=== PATIENT | female | born 1930 | race Caucasian/White ===

== ENCOUNTER → 2016-04-02 | Outpatient (CLI) | payer OTHER ==
[~2016-04-02] MED LIST: ADVIN25/60 INH; ASPI-232 PO; ASPI325T39 PO; ASPI81TA28 PO; ATOR-14 PO; DILT-113 PO; DILT180C96 PO; LEVO75TA5 PO; LPT/20 PO; NAPR1TAB9 PO; POLY335019 PO; SPRIN/30 INH; TAMO20TA5 PO; TIOTCAP INH; TRAM-453 PO; VNTHFA/IN INH
--- NOTE | 2016-04-02 17:09 | MAMMOGRAPHY REPORT ---
BILATERAL DIGITAL SCREENING MAMMOGRAM TOMOSYNTHESIS WITH CAD: 04/02/2016 CLINICAL HISTORY: Asymptomatic. Personal history of breast cancer. TECHNIQUE: Breast tomosynthesis in addition to standard 2D mammography was performed. Current study was also evaluated with a Computer Aided Detection (CAD) system. COMPARISON: Comparison is made to exams dated: 03/29/2015 mammogram, 03/27/2014 mammogram, 03/24/2013 mammogram, 08/19/2011 mammogram, 03/22/2012 mammogram, and 03/18/2010 mammogram - [facility]. BREAST COMPOSITION: There are scattered areas of fibroglandular density in both breasts. FINDINGS: No suspicious masses, calcifications, or areas of architectural distortion are noted in e ither breast. There has been no significant interval change compared to prior exams. There are stab le postsurgical changes in the left breast upper outer quadrant from prior lumpectomy. Bilateral be nign-appearing calcifications are not significantly changed. Oval circumscribed benign-appearing 6 mm mass in the left central posterior breast is stable dating back to at least the March 2013 exam . Mild diffuse left breast skin thickening is stable and likely related to prior radiation therapy. IMPRESSION: ACR BI-RADS CATEGORY 2: BENIGN There is no mammographic evidence of malignancy. A 1 year screening mammogram is recommended. The p atient will receive written notification of the results. Approximately 10% of breast cancers are not detected with mammography. A negative mammographic repor t should not delay biopsy if a clinically suggestive mass is present. Merry Bear M.D. ah/:04/02/2016 15:41:05 Second Grade Teacher: Mariana CAMPBELL)(Reuben), [facility] letter sent: Normal 1/2 BI-RADS Code: ACR BI-RADS Category 2: Benign
== END | disposition home or self-care (01) ==
LOC: C.MAMM 10:48
PROVIDERS: ATTEND Family Medicine
DX: Z12.31 Encounter for screening mammogram for malignant neoplasm of breast (principal); Z85.3 Personal history of malignant neoplasm of breast; Z08 Encounter for follow-up examination after completed treatment for malignant neoplasm

== ENCOUNTER → 2016-04-10 | Outpatient (CLI) | payer OTHER ==
[2016-04-10 09:51] LABS: ALT/SGPT 23 U/L (12-78); BLOOD UREA NITROGEN 16 mg/dl (7-18); BUN/CREATININE RATIO 18.6 (10-20); CALCIUM 8.3 mg/dl (8.5-10.1); CARBON DIOXIDE 26 mmol/L (21-32); CHLORIDE 106 mmol/L (98-107); CREATININE 0.86 mg/dl (0.60-1.20); GLUCOSE 97 mg/dl (70-99); POTASSIUM 4.1 mmol/L (3.5-5.1); SODIUM 141 mmol/L (136-145)
[2016-04-10 10:02] LABS: CHOLESTEROL 184 mg/dl (0-200); HDL CHOLESTEROL 92 mg/dl; LDL CHOLESTEROL CALCULATED 75 mg/dl; TRIGLYCERIDES 85 mg/dl (0-150); VERY LOW DENSITY LIPOPROT CALC 17 mg/dl
== END | disposition home or self-care (01) ==
LOC: C.LAB1850 07:26
PROVIDERS: ATTEND Family Medicine
DX: I10 Essential (primary) hypertension (principal); E78.00 Pure hypercholesterolemia, unspecified; E03.9 Hypothyroidism, unspecified; H61.20 Impacted cerumen, unspecified ear

== ENCOUNTER 2016-05-14 18:22 | Emergency (ER) | payer OTHER ==
[~2016-05-14] VITALS: Ht 160 cm; Wt 74.0 kg
[~2016-05-14 18:22] MED LIST changes: -ASPI325T39 PO; -ASPI81TA28 PO; -DILT180C96 PO; -LPT/20 PO; -NAPR1TAB9 PO; -POLY335019 PO; -SPRIN/30 INH; -TRAM-453 PO
[2016-05-14 18:25] VITALS: TEMP 36.6; Ht 160 cm; Wt 74.0 kg
[2016-05-14 19:05] VITALS: BP 147/90; PULSE 82; O2SAT 95
--- NOTE | 2016-05-14 19:06 | EMERGENCY ROOM VISIT NOTE ---
History Report prepared by Travis: Natalia Amor Under the Supervision of: Dr. Morales Orellana M.D. First contact with patient: 18:27 Chief Complaint: NOSE BLEED (MINOR) Stated Complaint: NOSE BLEED History of Present Illness The patient is a 85 year old female who presents to the Emergency Room with complaints of a resolved nose bleed that occurred BLANKET CUTTER HAND. The patient is unaware which side this nose bleed occurred on as it was too much blood. She held her head back during this episode of bleeding. She adds that she was "spitting up blood clots." The patient states that she experienced a similar nose bleed 5 days ago. She takes baby aspirin regularly. She denies trauma and persistent blowing of her nose recently. She denies any additional bleeding including rectal bleeding. She denies any easy bruising or bleeding. Source of History: patient Onset: BLANKET CUTTER HAND Position: nose Timing: resolved Modifying Factors (Worsening): other (None) Modifying Factors (Relieving): other (None) Note: The patient denies additional bleeding including rectal bleeding Review of Systems See HPI for pertinent positives & negatives. A total of 6 systems reviewed and were otherwise negative. Past Medical & Surgical Medical Problems: (1) Benign hypertension (2) Breast cancer (3) COPD (chronic obstructive pulmonary disease) (4) Coronary artery disease (5) Emphysema (6) Hypertension (7) Ovarian cancer Surgical Problems: (1) H/O hernia repair (2) History of hip replacement, total Family History FHx: cancer Social History Smoking Status: Former Smoker Alcohol Use: occasionally Drug Use: none Marital Status: Housing Status: lives alone Occupation Status: retired Current/Historical Medications Scheduled Aspirin (Aspir-81), 81 MG PO HS Atorvastatin (Lipitor), 10 MG PO HS Diltiazem Hcl Ext Rel (Tiazac), 180 MG PO DAILY Fluticasone Prop/Salmeterol (Advair Diskus 250/50 60 Dose), 1 PUFF INH BID Levothyroxine Sodium (Levothyroxine Sodium), 75 MCG PO DAILY Tamoxifen Citrate (Nolvadex), 20 MG PO DAILY Tiotropium [place] (Spiriva Handihaler), 1 CAP INH DAILY Scheduled PRN Albuterol Hfa (Ventolin Hfa), 2 PUFFS INH Q 4-6 HOURS PRN Polyethylene Glycol 3350 (Miralax), 17 GM PO DAILY PRN for Constipation Allergies Coded Allergies: Atorvastatin (Verified Adverse Reaction, Unknown, MYALGIA, 03/26/15) PT HAS LISTED WITH ALLSCRIPTS THAT SHE TAKES THIS MED, DR FAROOQ INDICATES SHE HAS RECENTLY HAD IT FILLED, PT STATES MD CHANGED THIS D/T MYALGIA HOWEVER PT IS UNSURE IF IT THE DOSE OR THE MED, NO OTHER HYPERLIPIDEMIA MEDS HAVE BEEN FILLED AND PT DID NOT RECEIVE A SAMPLE FROM MD. PT IS NOT SURE BUT SHE KNOWS SHE TAKES SOMETHING. Physical Exam Vital Signs Date Time Temp Pulse Resp B/P Pulse Ox O2 Delivery O2 Flow Rate FiO2 05/14/16 18:25 36.6 89 18 146/82 96 Room Air Physical Exam Constitutional: Vital signs reviewed. Eyes: Pupils are equal round reactive to light. Conjunctiva are noninjected. ENT: Well formed clot in right septum with no active bleeding. No blood in left nostril. Pharynx is clear without erythema or exudate. Mucous membranes are moist. Neck supple without meningeal signs. Respiratory: Clear to auscultation bilaterally. Breath sounds are equal bilaterally. Cardiovascular: Regular rate and rhythm. No rubs or gallops. GI: Soft, nondistended and nontender. Bowel sounds are present. Musculoskeletal: No peripheral edema. Integumentary: No cyanosis, petechiae, or purpura. Neurological: The patient is awake and alert. No focal deficits. Psychiatric: Normal affect. Medical Decision & Procedures ED Course 1829: The patient was evaluated in room A12B. A complete history and physical exam was performed. 1841: Upon reevaluation, the patient appeared to have improvement of her symptoms. I discussed segundoight's findings with the patient. She verbalized agreement of the treatment plan. She was discharged home. Medical Decision This is an 85-year-old female presents with a nosebleed. I did perform a limited focused review of portions of the patient's old chart on the electronic medical record. The patient has had no recent pertinent visits to this hospital. I did evaluate the patient as noted above. The patient has had 2 nosebleeds over the past week. Her nosebleed today has currently resolved. I did note that she has a clot in the right anterior septum without any active bleeding. The patient told me that she was holding her head back pinching the bridge of her nose and had an ice pack to her neck. I did educate her about controlling nosebleeds properly. She was instructed on how to hold pressure over her septum rather than the bony nasal bridge. She was also given a nasal clamp to assist her. I did talk about options such as cautery and packing. Given she has no active bleeding I did not feel packing was indicated. Cautery was also questionable given no active bleeding at this time. I was also concerned about the scarring that may develop from the cautery. I did offer cautery but she declined. She stated that she had had cautery in the past and immediately bled when she got home. The patient was therefore discharged and advised follow with her doctor. She will continue using a humidifier in her room. Impression Primary Impression: Epistaxis Scribe Attestation The scribe's documentation has been prepared under my direct and personally reviewed by me in its entirety. I confirm that the note above accurately reflects all work, treatment, procedures, and medical decision making performed by me. Departure Information Dispostion Home / Self-Care Referrals Francheska Zapata MD (PCP) Forms HOME CARE DOCUMENTATION FORM, IMPORTANT VISIT INFORMATION, WORK / SCHOOL INSTRUCTIONS Patient Instructions My [facility] Additional Instructions You have been examined and treated today on an emergency basis only. This is not a substitute for, or an effort to provide, complete comprehensive medical care. It is impossible to recognize and treat all injuries or illnesses in a single emergency department visit. It is therefore important that you follow up closely with your physician. Call as soon as possible for an appointment. Return for worsening symptoms or if you develop or any other concerning symptoms.
[2016-05-14] MEDS ORDERED: LPT/20 PO (19:15)
[2016-05-14] MEDS ORDERED: DILT180C96 PO (19:15)
[2016-05-14] MEDS ORDERED: ASPI325T39 PO (19:15)
[2016-05-14] MEDS ORDERED: SPRIN/30 INH (19:15)
[2016-05-14] MEDS ORDERED: POLY335019 PO (20:47)
[2016-07-03] MEDS ORDERED: ASPI81TA28 PO (15:45)
[2016-07-03] MEDS ORDERED: NAPR1TAB9 PO (15:45)
[2016-07-03] MEDS ORDERED: TRAM-453 PO (19:06)
== END 2016-05-14 19:06 | disposition home or self-care (01) ==
LOC: C.EDB 18:24 → C.EDA 19:06
DX: R04.0 Epistaxis (principal); I10 Essential (primary) hypertension; I25.10 Atherosclerotic heart disease of native coronary artery without angina pectoris; J44.9 Chronic obstructive pulmonary disease, unspecified; J43.9 Emphysema, unspecified; Z85.3 Personal history of malignant neoplasm of breast; Z85.43 Personal history of malignant neoplasm of ovary; Z87.891 Personal history of nicotine dependence; Z79.82 Long term (current) use of aspirin; Z79.899 Other long term (current) drug therapy; Z88.8 Allergy status to other drugs, medicaments and biological substances; Z80.9 Family history of malignant neoplasm, unspecified

== ENCOUNTER → 2016-05-22 | Outpatient (CLI) | payer OTHER ==
[~2016-05-22] MED LIST changes: -ASPI-232 PO; +ASPI325T39 PO; +ASPI81TA28 PO; -ATOR-14 PO; -DILT-113 PO; +DILT180C96 PO; +LPT/20 PO; +NAPR1TAB9 PO; +POLY335019 PO; +SPRIN/30 INH; -TAMO20TA5 PO; -TIOTCAP INH; +TRAM-453 PO
[2016-05-22 12:10] LABS: BASO % 0.4 %; BASO ABS # 0.03 K/uL (0-0.2); COMPLETE YES; EOS % 1.5 %; HEMATOCRIT 38.5 % (37-47); IG% 0.1 %; LYMPH % 16.7 %; LYMPH ABS # 1.15 K/uL (1.2-3.4); MEAN CELL VOLUME 93.7 fL (80-100); MEAN CORPUSCULAR HEMOGLOBIN 29.7 pg (25-34); MEAN CORPUSCULAR HGB CONC 31.7 g/dl (32-36); MEAN PLATELET VOLUME 10.5 fL (7.4-10.4); MONO % 8.7 %; NEUT % 72.6 %; PLATELET COUNT 207 K/uL (130-400); RED BLOOD COUNT 4.11 M/uL (4.2-5.4); WHITE BLOOD COUNT 6.89 K/uL (4.8-10.8)
== END | disposition home or self-care (01) ==
LOC: C.LAB1850 10:35
PROVIDERS: ATTEND Family Medicine
DX: R04.0 Epistaxis (principal)

== ENCOUNTER → 2016-05-26 | Outpatient (CLI) | payer OTHER | END | disposition home or self-care (01) | LOC: C.PATHSPEC 11:54 | PROVIDERS: ATTEND Ophthalmology | DX: D23.12 Other benign neoplasm of skin of left eyelid, including canthus (principal) ==

== ENCOUNTER → 2016-06-27 | Outpatient (CLI) | payer OTHER ==
[~2016-06-27] MED LIST changes: +DILT180C58 PO; -DILT180C96 PO
--- NOTE | 2016-06-27 14:53 | DIAGNOSTIC IMAGING REPORT ---
ULTRASOUND LEFT VENOUS DOPP LOWER EXT UNILAT CLINICAL HISTORY: Left leg pain and numbness COMPARISON STUDY: No previous studies for comparison. FINDINGS: Real-time and color flow Doppler imaging were performed. Flow was seen within the femoral, popliteal and calf veins with no intraluminal thrombus demonstrated. The saphenous vein is patent. IMPRESSION: No evidence of left lower extremity DVT. Electronically signed by: David Tellez M.D. 06/27/2016 2:51 PM Dictated Date/Time: 06/27/2016 2:50 PM
== END | disposition home or self-care (01) ==
LOC: C.ULTRBC 14:25
PROVIDERS: ATTEND Nurse Practitioner Family
DX: M79.605 Pain in left leg (principal)

== ENCOUNTER → 2016-06-30 | Outpatient (CLI) | payer OTHER ==
--- NOTE | 2016-06-30 10:51 | DIAGNOSTIC IMAGING REPORT ---
LEFT KNEE 1 OR 2 VIEWS ROUTINE CLINICAL HISTORY: Left knee pain COMPARISON: None. DISCUSSION: No acute fractures are visualized. There are no erosive or destructive changes. The joint space appears well-preserved for age. There are vascular calcifications. IMPRESSION: No fractures identified. No destructive lesions are visualized. Electronically signed by: David Tellez M.D. 06/30/2016 10:49 AM Dictated Date/Time: 06/30/2016 10:48 AM
[2016-06-30 12:27] LABS: ALB/GLOB RATIO 1.2 (0.9-2); ALKALINE PHOSPHATASE 57 U/L (45-117); ALT/SGPT 31 U/L (12-78); AST/SGOT 18 U/L (15-37); BASO % 1.1 %; BASO ABS # 0.06 K/uL (0-0.2); BLOOD UREA NITROGEN 19 mg/dl (7-18); BUN/CREATININE RATIO 20.2 (10-20); C-REACTIVE PROTEIN < 0.29 mg/dl (0-0.29); CALCIUM 8.8 mg/dl (8.5-10.1); CARBON DIOXIDE 25 mmol/L (21-32); CHLORIDE 108 mmol/L (98-107); COMPLETE YES; CREATININE 0.96 mg/dl (0.60-1.20); EOS % 1.8 %; GLUCOSE 91 mg/dl (70-99); HEMATOCRIT 39.9 % (37-47); IG% 0.4 %; LYMPH % 21.5 %; MEAN CELL VOLUME 95.2 fL (80-100); MEAN CORPUSCULAR HEMOGLOBIN 30.3 pg (25-34); MEAN CORPUSCULAR HGB CONC 31.8 g/dl (32-36); MEAN PLATELET VOLUME 10.4 fL (7.4-10.4); MONO % 6.4 %; NEUT % 68.8 %; PLATELET COUNT 204 K/uL (130-400); POTASSIUM 4.1 mmol/L (3.5-5.1); RED BLOOD COUNT 4.19 M/uL (4.2-5.4); SODIUM 141 mmol/L (136-145); URIC ACID 4.4 mg/dl (2.6-7.2); WHITE BLOOD COUNT 5.59 K/uL (4.8-10.8)
[2016-06-30 13:09] LABS: LYME DISEASE AB IGG NEG (NEG); LYME DISEASE AB IGM NEG (NEG)
== END | disposition home or self-care (01) ==
LOC: C.RAD1850 10:21
PROVIDERS: ATTEND Nurse Practitioner Family
DX: M79.609 Pain in unspecified limb (principal)

== ENCOUNTER → 2016-10-07 | Outpatient (CLI) | payer OTHER ==
[~2016-10-07] MED LIST changes: -ASPI325T39 PO; -DILT180C58 PO; +DILT180C96 PO; -TRAM-453 PO
[2016-10-07 09:52] LABS: ALT/SGPT 34 U/L (12-78); BLOOD UREA NITROGEN 16 mg/dl (7-18); CALCIUM 8.6 mg/dl (8.5-10.1); CARBON DIOXIDE 26 mmol/L (21-32); CHLORIDE 108 mmol/L (98-107); CREATININE 0.84 mg/dl (0.60-1.20); GLUCOSE 99 mg/dl (70-99); HDL CHOLESTEROL 87 mg/dl; POTASSIUM 4.1 mmol/L (3.5-5.1); SODIUM 140 mmol/L (136-145)
[2016-10-07 10:06] LABS: CHOLESTEROL 187 mg/dl (0-200); CHOLESTEROL/HDL RATIO 2.1; LDL CHOLESTEROL CALCULATED 88 mg/dl; TRIGLYCERIDES 62 mg/dl (0-150); VERY LOW DENSITY LIPOPROT CALC 12 mg/dl
== END | disposition home or self-care (01) ==
LOC: C.LAB1850 08:14
PROVIDERS: ATTEND Family Medicine
DX: I10 Essential (primary) hypertension (principal); E78.00 Pure hypercholesterolemia, unspecified; E03.9 Hypothyroidism, unspecified

== ENCOUNTER → 2016-12-30 | Outpatient (CLI) | payer OTHER ==
[~2016-12-30] MED LIST changes: +DILT180C58 PO; -DILT180C96 PO
[2016-12-30 13:28] VITALS: BP 141/78; PULSE 72; TEMP 36.5; O2SAT 92
--- NOTE | 2016-12-30 14:35 | Radiation Oncology Follow-Up ---
Radiation Oncology Follow-Up Date of Visit Dec 30, 2016. Reason For Visit Annual follow-up Radiation Completion Date 06/06/2011 Diagnosis (1) Breast cancer Status: Resolved Onset Date: 04/04/2011 Location: left breast Histology Subtype: ductal Stage: l Permanent Comment: Status post abnormal left breast mammogram Status post ultrasound-guided biopsy 04/04/2011 revealing invasive ductal carcinoma Status post needle localization biopsy excisional lumpectomy and sentinel lymph node biopsy 08/20/2011 Stage [id number] Estrogen receptor positive, progesterone receptor positive, HER-2/boyd negative Status post completion of radiation therapy utilizing accelerated partial breast treatment completed 06/06/2011 received 3400 cGy Last Edited By: Monae Angulo on Jan 02, 2015 16:33 Interim History She's been doing well over this past year. She denies any changes to her breast. She is noted no masses or tenderness and no change in the axilla. She' s had no swelling of her arm. She is up-to-date on mammography. She had a recheck mammogram 04/02/2016. There was no mammographic evidence of malignancy. One year follow-up was recommended BI-RADS Category 2. She continues follow-up with Dr. Huber and is on tamoxifen. She denies side effects. Allergies Coded Allergies: Atorvastatin (Verified Adverse Reaction, Unknown, MYALGIA, 03/26/15) PT HAS LISTED WITH ALLSCRIPTS THAT SHE TAKES THIS MED, DR FAROOQ INDICATES SHE HAS RECENTLY HAD IT FILLED, PT STATES MD CHANGED THIS D/T MYALGIA HOWEVER PT IS UNSURE IF IT THE DOSE OR THE MED, NO OTHER HYPERLIPIDEMIA MEDS HAVE BEEN FILLED AND PT DID NOT RECEIVE A SAMPLE FROM MD. PT IS NOT SURE BUT SHE KNOWS SHE TAKES SOMETHING. Home Medications Scheduled Aspirin (Aspirin Ec), 81 MG PO DAILY Atorvastatin (Atorvastatin Calcium), 20 MG PO DAILY Diltiazem Hcl Coated Beads (Diltiazem Cd), 180 MG PO DAILY Fluticasone Prop/Salmeterol (Advair Diskus 250/50 60 Dose), 1 PUFF INH BID Levothyroxine Sodium (Levothyroxine Sodium), 75 MCG PO DAILY Tiotropium [place] (Spiriva Handihaler), 1 PUFF INH DAILY Scheduled PRN Albuterol Hfa (Ventolin Hfa), 2 PUFFS INH Q 4-6 HOURS PRN Naproxen (Aleve), 220 MG PO Q12 PRN for Pain Polyethylene Glycol 3350 (Miralax), 17 GM PO DAILY PRN for Constipation Review of Systems Gastrointestinal: Symptoms: Constipation GI Comments: constipation a problem all m life Oral: Symptoms: No Problems Respiratory: Symptoms: SOB With Exertion Respiratory Comments: copd Other Respiratory: SOB w/exertion related to her "COPD" Urinary: Symptoms: WNL Comments: 2-3 voids/night which is typical for pt Skin: Symptoms: No Problems Breast: Right Upper Arm Measurement: 26.5 Right Mid Arm Measurement: 23.0 Right Wrist Measurement: 16.0 Left Upper Arm Measurement: 27.5 Left Mid Arm Measurement: 22.5 Left Wrist Measurement: 16.0 Arm Dominence: Right Physical Exam Vital Signs Date Time Temp Pulse Resp B/P (MAP) Pulse Ox O2 Delivery O2 Flow Rate FiO2 12/30/16 13:28 36.5 72 22 141/78 92 Pain: Pain Location: None Patient Pain Scale: 0 - 10 Initial Pain Intensity: 0.0 Fatigue: None General Appearance: no apparent distress Eyes: normal inspection, EOMI ENT: normal ENT inspection, hearing grossly normal Neck: no adenopathy, thyroid normal Respiratory/Chest: lungs clear, no respiratory distress, no accessory muscle use Breast: Breast examination reveals well-healed incisions of the left breast. There is palpable fibrous tissue in the upper outer quadrant. She has very slight telangiectasia over the upper outer quadrant incision. Mild deficit also in this area. There are no masses or tenderness and no axillary adenopathy. Using the [place] score cosmesis she has a good outcome. The right breast showed no masses or tenderness and no axillary adenopathy. Cardiovascular: regular rate, rhythm, no gallop, no murmur Neurologic/Psychiatric: no motor/sensory deficits, alert, normal mood/affect Skin: warm/dry Laboratory Studies Test 10/07/16 08:18 Sodium Level 140 mmol/L (136-145) Potassium Level 4.1 mmol/L (3.5-5.1) Chloride Level 108 mmol/L (98-107) Carbon Dioxide Level 26 mmol/L (21-32) Anion Gap 6.0 mmol/L (3-11) Blood Urea Nitrogen 16 mg/dl (7-18) Creatinine 0.84 mg/dl (0.60-1.20) Estimated GFR () 73.5 Estimated GFR (Non- 63.4 BUN/Creatinine Ratio 19.0 (10-20) Random Glucose 99 mg/dl (70-99) Calcium Level 8.6 mg/dl (8.5-10.1) Alanine Aminotransferase (ALT) 34 U/L (12-78) Triglycerides Level 62 mg/dl (0-150) Cholesterol Level 187 mg/dl (0-200) HDL Cholesterol 87 mg/dl LDL Cholesterol, Calculated 88 mg/dl VLDL Cholesterol, Calculated 12 mg/dl Cholesterol/HDL Ratio 2.1 Thyroid Stimulating Hormone (TSH) 2.040 uIu/ml (0.300-4.500) Additional Studies Patient: ILEANA SANTOYO [facility] Rec: [id number] Address1: [address] [place] [address] [facility]: [id number] Date: 1930 Sex: F Ref Phy: Att Phy: Francheska Zapata MD La Phy: Francheska Zapata MD Inter Phy: Merry Bear MD [facility] Zip: [place] [address] SC: C.MAMM Report #: [id number] Attorney Lawyer: YUDITH Diagnosis: ASYMPTOMATIC HX OF BREAST CANCER Service Date: 04/02/16 MNE: [id number] Ordering Dr: Francheska Zapata MD CC: Francheska Zapata MD CONF: DICTATED BY: Merry Bear MD MAMMOGRAPHY REPORT BILATERAL DIGITAL SCREENING MAMMOGRAM TOMOSYNTHESIS WITH CAD: 04/02/2016 CLINICAL HISTORY: Asymptomatic. Personal history of breast cancer. TECHNIQUE: Breast tomosynthesis in addition to standard 2D mammography was performed. Current study was also evaluated with a Computer Aided Detection (CAD ) system. COMPARISON: Comparison is made to exams dated: 03/29/2015 mammogram, 03/27/2014 mammogram, 03/24/2013 mammogram, 08/19/2011 mammogram, 03/22/2012 mammogram, and 12/2010 mammogram - [facility]. BREAST COMPOSITION: There are scattered areas of fibroglandular density in both breasts. FINDINGS: No suspicious masses, calcifications, or areas of architectural distortion are noted in either breast. There has been no significant interval change compared to prior exams. There are stable postsurgical changes in the left breast upper outer quadrant from prior lumpectomy. Bilateral benign- appearing calcifications are not significantly changed. Oval circumscribed benign-appearing 6 mm mass in the left central posterior breast is stable dating back to at least the March 2013 exam. Mild diffuse left breast skin thickening is stable and likely related to prior radiation therapy. IMPRESSION: ACR BI-RADS CATEGORY 2: BENIGN There is no mammographic evidence of malignancy. A 1 year screening mammogram is recommended. The patient will receive written notification of the results. Approximately 10% of breast cancers are not detected with mammography. A negative mammographic report should not delay biopsy if a clinically suggestive mass is present. Merry Bear M.D. ah/:04/02/2016 15:41:05 Narcotics And/Or Vice Detective: Mariana CAMPBELL)(Reuben), [facility] letter sent: Normal 1/2 BI-RADS Code: ACR BI-RADS Category 2: Benign Dictated by: Merry Bear MD Signed by: Merry Bear MD Assessment & Plan Plan: Continue annual mammography. Continue regular follow-up with Dr. Huber and Dr. Zapata. She has been discharged from Dr. Carter. A follow-up appointment with our office was not given. She may call if she has any questions or concerns. She'll need to continue taking you to have regular breast examinations at Dr. Zapata's office. Total Time In Follow-Up I spent 20 minutes speaking to the patient and performing examination. I spent 15 minutes reviewing information in completing this note. Copy To Jt Huber M.D.; Francheska Zapata MD
== END | disposition home or self-care (01) ==
LOC: C.ONC 13:15
PROVIDERS: ATTEND Physician Assistant Medical
DX: Z08 Encounter for follow-up examination after completed treatment for malignant neoplasm (principal); Z92.3 Personal history of irradiation; Z85.3 Personal history of malignant neoplasm of breast

== ENCOUNTER → 2017-04-06 | Outpatient (CLI) | payer OTHER ==
[~2017-04-06] MED LIST changes: -DILT180C58 PO; +DILT180C96 PO; -LPT/20 PO; +LPT20 PO
--- NOTE | 2017-04-06 15:52 | MAMMOGRAPHY REPORT ---
BILATERAL DIGITAL SCREENING MAMMOGRAM TOMOSYNTHESIS WITH CAD: 04/06/2017 CLINICAL HISTORY: Asymptomatic. Personal history of breast cancer. TECHNIQUE: Breast tomosynthesis in addition to standard 2D mammography was performed. Current study was also evaluated with a Computer Aided Detection (CAD) system. COMPARISON: Comparison is made to exams dated: 04/02/2016 mammogram, 03/29/2015 mammogram, 03/27/2014 m ammogram, 09/22/2013 mammogram, 03/24/2013 mammogram, and 03/22/2012 mammogram - [facility]. BREAST COMPOSITION: There are scattered areas of fibroglandular density in both breasts. FINDINGS: No suspicious masses, calcifications, or areas of architectural distortion are noted in ei ther breast. There has been no significant interval change compared to prior exams. There are stable postsurgical changes in the left breast upper outer quadrant from prior lumpectomy. Bilateral benig n-appearing calcifications are not significantly changed. Oval circumscribed benign-appearing 6 mm m ass in the left central posterior breast is stable dating back to at least the March 2013 exam. Mi ld diffuse left breast skin thickening is stable and likely related to prior radiation therapy. IMPRESSION: ACR BI-RADS CATEGORY 2: BENIGN There is no mammographic evidence of malignancy. A 1 year screening mammogram is recommended. The pa tient will receive written notification of the results. Approximately 10% of breast cancers are not detected with mammography. A negative mammographic report should not delay biopsy if a clinically suggestive mass is present. Merry Bear M.D. /:04/06/2017 12:57:15 Manager Marketing Communications: Jess Fermin, [facility] letter sent: Normal 1/2 BI-RADS Code: ACR BI-RADS Category 2: Benign
== END | disposition home or self-care (01) ==
LOC: C.MAMM 10:13
PROVIDERS: ATTEND Family Medicine
DX: Z12.31 Encounter for screening mammogram for malignant neoplasm of breast (principal)

== ENCOUNTER → 2017-04-14 | Outpatient (CLI) | payer OTHER ==
[2017-04-14 09:46] LABS: ALT/SGPT 29 U/L (12-78); BLOOD UREA NITROGEN 14 mg/dl (7-18); CALCIUM 8.9 mg/dl (8.5-10.1); CARBON DIOXIDE 27 mmol/L (21-32); CREATININE 0.83 mg/dl (0.60-1.20); GLUCOSE 93 mg/dl (70-99); POTASSIUM 4.2 mmol/L (3.5-5.1); SODIUM 137 mmol/L (136-145)
[2017-04-14 09:55] LABS: CHOLESTEROL 200 mg/dl (0-200); LDL CHOLESTEROL CALCULATED 85 mg/dl
== END | disposition home or self-care (01) ==
LOC: C.LAB1850 07:38
PROVIDERS: ATTEND Family Medicine
DX: I25.10 Atherosclerotic heart disease of native coronary artery without angina pectoris (principal); I10 Essential (primary) hypertension; E78.00 Pure hypercholesterolemia, unspecified; E03.9 Hypothyroidism, unspecified

== ENCOUNTER 2020-02-11 08:48 | Inpatient (IN) ==
[2020-02-11] MEDS ORDERED: predniSONE 20 MG TAB PO SCH (11:40)
[2020-02-11] MEDS: SODIUM CHLORIDE 0.9% 1000ML 1,000 ML IV SCH ×2 (15:00→22:35)
[2020-02-11] MEDS ORDERED: POLYETHYLENE (MIRALAX) 17 GM PACK PO PRN (17:36)
[2020-02-11] MEDS ORDERED: ACETAMINOPHEN 325 MG TAB PO PRN (17:37)
[2020-02-11] MEDS ORDERED: Nursing to Pharmacy Communication SCH (18:15)
[2020-02-11 20:00] LABS: Basophils # (auto) 0.01 K/uL (0-0.2); Basophils % (auto) 0.1 %; Hematocrit (blood only) 40.2 % (37-47); Hemoglobin 13.1 g/dL (12.0-16.0); Immature Granulocytes # (auto) 0.06 K/uL (0.00-0.02); Immature Granulocytes % (auto) 0.6 %; Lymphocytes # (auto) 0.42 K/uL (1.2-3.4); Lymphocytes % (auto) 4.4 %; Mean Corpuscular Hemoglobin 29.6 pg (25-34); Mean Corpuscular Hgb Conc 32.6 g/dL (32-36); Mean Corpuscular Volume 90.7 fL (80-100); Mean Platelet Volume 9.8 fL (7.4-10.4); Monocytes # (auto) 0.47 K/uL (0.11-0.59); Monocytes % (auto) 4.9 %; Neutrophils # (auto) 8.58 K/uL (1.4-6.5); Platelet Count 226 K/uL (130-400); RDW Coefficient of Variation 13.9 % (11.5-14.5); RDW Standard Deviation 46.3 fL (36.4-46.3); Red Blood Count 4.43 M/uL (4.2-5.4); White Blood Count 9.54 K/uL (4.8-10.8)
[2020-02-11 20:27] LABS: Alanine Aminotransferase 64 U/L (12-78); Albumin Globulin Ratio 0.7 (0.9-2); Albumin Level 3.1 gm/dl (3.4-5.0); Alkaline Phosphatase 111 U/L (45-117); Aspartate Aminotransferase 64 U/L (15-37); BUN Creatinine Ratio 13.2 (10-20); Bilirubin,Total 0.5 mg/dl (0.2-1); Blood Urea Nitrogen 8 mg/dl (7-18); Calcium 8.1 mg/dl (8.5-10.1); Carbon Dioxide 25 mmol/L (21-32); Chloride 96 mmol/L (98-107); Est GFR (African American) 92.7; Est GFR (Non-African American) 79.9; Globulin 4.4 gm/dl (2.5-4.0); Glucose 133 mg/dl (70-99); Magnesium 2.1 mg/dl (1.8-2.4); NT Pro B Type Natriuretic Pept 614 pg/ml (0-1800); Potassium 3.4 mmol/L (3.5-5.1); Sodium 129 mmol/L (136-145); Total Protein 7.5 gm/dl (6.4-8.2); Troponin I < 0.015 ng/ml (0-0.045)
[2020-02-11] MEDS: ALBUTEROL HFA 8 GM INHALER INH SCH (20:50)
[2020-02-11] MEDS: IPRATROPIUM BROMIDE HFA INHALER INH SCH (20:50)
--- NOTE | 2020-02-11 21:23 | XRay Report ---
XR chest 1V portable CLINICAL HISTORY: Chest pain and difficulty breathing COMPARISON STUDY: No previous studies for comparison. FINDINGS: The heart is mildly enlarged. There is aortic tortuosity/ectasia. No pneumothorax is visual ized. There is mild elevation of interstitium. There are equivocal more focal opacities within the ri ght perihilar region. There is an old left-sided rib fracture. There are no significant pleural effus ions.[There are multiple calcified loose bodies within the left subacromial space. IMPRESSION: 1. Mild elevation of the interstitium. Likely diagnostic considerations include mild interstitial vini ma versus an interstitial infectious/inflammatory process. Clinical and radiographic follow-up is rec ommended ACT 112: Negative or not required by law. Electronically signed by: David Tellez M.D. 02/11/2020 10:27 AM
[2020-02-12] MEDS: LEVOTHYROXINE SODIUM 75 MCG TABLET PO SCH (05:55)
[2020-02-12 06:59] LABS: Hematocrit (blood only) 38.9 % (37-47); Hemoglobin 12.9 g/dL (12.0-16.0); Immature Granulocytes # (auto) 0.03 K/uL (0.00-0.02); Immature Granulocytes % (auto) 0.4 %; Lymphocytes # (auto) 0.57 K/uL (1.2-3.4); Lymphocytes % (auto) 7.1 %; Mean Corpuscular Hemoglobin 30.2 pg (25-34); Mean Corpuscular Hgb Conc 33.2 g/dL (32-36); Mean Corpuscular Volume 91.1 fL (80-100); Mean Platelet Volume 9.1 fL (7.4-10.4); Monocytes % (auto) 7.5 %; Neutrophils # (auto) 6.79 K/uL (1.4-6.5); Platelet Count 226 K/uL (130-400); RDW Coefficient of Variation 14.1 % (11.5-14.5); RDW Standard Deviation 47.4 fL (36.4-46.3); Red Blood Count 4.27 M/uL (4.2-5.4); White Blood Count 7.99 K/uL (4.8-10.8)
[2020-02-12] MEDS: IPRATROPIUM BROMIDE HFA INHALER INH SCH ×4 (07:08→19:38)
[2020-02-12] MEDS: ALBUTEROL HFA 8 GM INHALER INH SCH ×4 (07:09→19:38)
[2020-02-12 07:30] LABS: D Dimer 670 ug/L FEU (0-500)
[2020-02-12 07:40] LABS: Sodium 135 mmol/L (136-145)
[2020-02-12 07:41] LABS: BUN Creatinine Ratio 23.6 (10-20); Blood Urea Nitrogen 10 mg/dl (7-18); Calcium 7.9 mg/dl (8.5-10.1); Carbon Dioxide 25 mmol/L (21-32); Chloride 103 mmol/L (98-107); Est GFR (African American) 106.2; Est GFR (Non-African American) 91.6; Glucose 99 mg/dl (70-99); Magnesium 2.1 mg/dl (1.8-2.4); Potassium 3.2 mmol/L (3.5-5.1)
[2020-02-12] MEDS: ASPIRIN 81 MG ECTAB PO SCH (08:01)
[2020-02-12] MEDS: dilTIAZem HCL 180 MG CAPCR PO SCH (08:02)
[2020-02-12] MEDS: ATORVASTATIN 20 MG TAB PO SCH (08:02)
[2020-02-12] MEDS: UMECLIDINIUM BROMIDE 62.5MCG/BLISTER 7 PUFFS/INHALER INH SCH (08:03)
[2020-02-12] MEDS: ENOXAPARIN INJ 40 MG/0.4 ML SYR SQ SCH (08:03)
[2020-02-12] MEDS: FLUTICASONE/VILANTEROL 100/25MCG 14 PUFFS/INHALER INH SCH (08:05)
[2020-02-12] MEDS ORDERED: predniSONE 20 MG TAB PO SCH (09:00)
[2020-02-12] MEDS: FAMOTIDINE 10 MG TABLET PO SCH (09:11)
[2020-02-12] MEDS: hydrALAZINE 10 MG TAB PO PRN (09:11)
[2020-02-12] MEDS ORDERED: amLODIPine BESYLATE 5 MG TAB PO SCH (09:30)
[2020-02-12] MEDS ORDERED: POTASSIUM CHLORIDE CRTAB 20 MEQ TABCR PO ONE (09:30)
--- NOTE | 2020-02-12 11:13 | Hospitalist Progress Note ---
Date of Service February 12, 2020 Assessment & Plan (1) Hypoxia: Presented with worsening shortness of breath and pulse ox of 84% on room air after being diagnosed with Covid approximately 1 week prior. Has a history of COPD Chest x-ray on admission with mild elevation of the interstitium possibly representing interstitial edema versus infectious/inflammatory process Now improved on 3 L nasal cannula to maintain pulse ox greater than 90% -Continue supplemental O2 -Continue scheduled albuterol HFA -Discontinue prednisone and will start dexamethasone and increased to every 12 hours -Continue fluticasone/Vilanterol (2) Pneumonia: With interstitial pneumonia seen on chest x-ray in the setting of Covid Procalcitonin is negative She already completed a 5-day course of azithromycin as an outpatient This is secondary to Covid viral pneumonia Continue dexamethasone as above, bronchodilators, supplemental O2 Order flutter valve and incentive spirometry (3) COVID-19: -PepcidAs above, with hypoxia and interstitial pneumonia, nausea and diarrhea Symptoms started on approximately 02/01 Continue dexamethasone, but she is outside the window for receiving any benefit from remdesivir or convalescent plasma -Continue supportive care as above Daily for GI prophylaxis in the setting of steroid use (4) Chronic obstructive pulmonary disease: With a history of previous smoking Giving steroids, bronchodilators, maintenance inhalers as above (5) Hypokalemia: Potassium low today Replace with potassium chloride p.o. Follow BMP and magnesium in the morning (6) Hyponatremia: Sodium 129 on admission and now improved to 135 after receiving 2 L of normal saline on admission DC any further IV fluids Continue hydration by mouth Follow BMP in the morning (7) Diarrhea: Having several loose stools so far today Did take azithromycin prior to admission but also could be diarrhea from Covid Follow and check C. difficile if continues to have multiple loose stools greater than 3/day Follow electrolytes and replete as needed (8) Hypertension: Blood pressures are somewhat elevated here likely worsened by corticosteroid use -Continue diltiazem 180 mg daily and increase as needed -IV hydralazine as needed for SBP greater than 180 (9) Coronary artery disease: No history listed in the chart No chest pains, ECG on admission without ischemia Continue aspirin, atorvastatin (10) Hypercholesterolemia: Continue statin (11) Hypothyroidism: TSH here normal at 1.4 Continue home levothyroxine (12) Insomnia: Having difficulty sleeping the setting of hospitalization and steroid use Start melatonin 3 mg at bedtime as needed insomnia (13) DVT prophylaxis: Lovenox 40 mg SQ once daily Disposition-continued stay Admission and Anticipated Discharge Date Admission Date: February 11, 2020 Subjective Pt feels SOB especially with exertion walking the 10 feet to the bathroom. Her POx was 86% when she returned from the bathroom and it took some time and increased her O2 to get her up to 90%. No nausea or vomiting. Is having loose stools today. No abd pain. Feels tired. Review of Systems Review of Systems: All systems reviewed & are unremarkable except as noted in HPI & below Patient is asking for something for sleep tonight as she was unable to sleep last night and is exhausted Physical Exam Constitutional: WD/WN, vitals as above Eyes: + anicteric sclerae Neck: trachea midline, no thyromegaly Respiratory: + tachypneic Auscultation: + diminished lung sounds (Throughout) and + crackles (Bibasilar); no wheezes Cardiovascular: RRR, no murmur, no edema Chest (Breasts): Chest: normal inspection of chest Gastrointestinal (Abdomen): normal bowel sounds, soft, nontender, no hepatosplenomegaly Musculoskeletal: Extremities: extremities normal to inspection; no cyanosis and no clubbing Skin: no rashes, warm and dry Neurologic: moves all extremities and awake; no focal motor deficits Psychiatric: A+Ox3, euthymic affect Lymphatic: no lymphedema Results & Data Results & Data ([facility]) Vital Signs (Past 12 Hours) Vital Signs Temp Pulse Resp BP Pulse Ox 02/12/20 08:13 36.8 C 79 20 191/95 H 92 02/12/20 07:09 92 H 18 92 Laboratory Results 02/12/20 02/12/20 02/12/20 Range/Units 06:16 06:16 06:16 WBC (4.8-10.8) K/uL RBC (4.2-5.4) M/uL Hgb (12.0-16.0) g/dL Hct (37-47) % MCV (80-100) fL MCH (25-34) pg MCHC (32-36) g/dL RDW Std Deviation (36.4-46.3) fL RDW Coeff of Jolene (11.5-14.5) % Plt Count (130-400) K/uL MPV (7.4-10.4) fL Immature Gran % (Auto) % Neut % (Auto) % Lymph % (Auto) % [place] % (Auto) % Eos % (Auto) % Baso % (Auto) % Neut # (Auto) (1.4-6.5) K/uL Lymph # (Auto) (1.2-3.4) K/uL [place] # (Auto) (0.11-0.59) K/uL Eos # (Auto) (0-0.5) K/uL Baso # (Auto) (0-0.2) K/uL Immature Gran # (Auto) (0.00-0.02) K/uL D-Dimer 670 H* (0-500) ug/L FEU Sodium 135 L (136-145) mmol/L Potassium 3.2 L (3.5-5.1) mmol/L Chloride 103 (98-107) mmol/L Carbon Dioxide 25 (21-32) mmol/L Anion Gap 8.0 (3-11) BUN 10 (7-18) mg/dl Creatinine 0.41 L (0.6-1.2) mg/dl Est Cr Clr Drug Dosing Not Reportable Est GFR ( Amer) 106.2 Est GFR (Non-Af Amer) 91.6 BUN/Creatinine Ratio 23.6 H (10-20) Glucose 99 (70-99) mg/dl Lactate (0.4-2.0) mmol/L Calcium 7.9 L (8.5-10.1) mg/dl Magnesium 2.1 (1.8-2.4) mg/dl Total Bilirubin (0.2-1) mg/dl AST (15-37) U/L ALT (12-78) U/L Alkaline Phosphatase (45-117) U/L Troponin I (0-0.045) ng/ml NT-Pro-B Natriuret Pep (0-1800) pg/ml Total Protein (6.4-8.2) gm/dl Albumin (3.4-5.0) gm/dl Globulin (2.5-4.0) gm/dl Albumin/Globulin Ratio (0.9-2) Procalcitonin 0.15 (0-0.5) ng/ml TSH (0.300-4.500) uIu/ml 02/12/20 02/11/20 02/11/20 Range/Units 06:16 10:24 10:24 WBC 7.99 (4.8-10.8) K/uL RBC 4.27 (4.2-5.4) M/uL Hgb 12.9 (12.0-16.0) g/dL Hct 38.9 (37-47) % MCV 91.1 (80-100) fL MCH 30.2 (25-34) pg MCHC 33.2 (32-36) g/dL RDW Std Deviation 47.4 H (36.4-46.3) fL RDW Coeff of Jolene 14.1 (11.5-14.5) % Plt Count 226 (130-400) K/uL MPV 9.1 (7.4-10.4) fL Immature Gran % (Auto) 0.4 % Neut % (Auto) 85.0 % Lymph % (Auto) 7.1 % [place] % (Auto) 7.5 % Eos % (Auto) 0.0 % Baso % (Auto) 0.0 % Neut # (Auto) 6.79 H (1.4-6.5) K/uL Lymph # (Auto) 0.57 L (1.2-3.4) K/uL [place] # (Auto) 0.60 H (0.11-0.59) K/uL Eos # (Auto) 0.00 (0-0.5) K/uL Baso # (Auto) 0.00 (0-0.2) K/uL Immature Gran # (Auto) 0.03 H (0.00-0.02) K/uL D-Dimer (0-500) ug/L FEU Sodium 129 L (136-145) mmol/L Potassium 3.4 L (3.5-5.1) mmol/L Chloride 96 L (98-107) mmol/L Carbon Dioxide 25 (21-32) mmol/L Anion Gap 8.0 (3-11) BUN 8 (7-18) mg/dl Creatinine 0.62 (0.6-1.2) mg/dl Est Cr Clr Drug Dosing Not Reportable Est GFR ( Amer) 92.7 Est GFR (Non-Af Amer) 79.9 BUN/Creatinine Ratio 13.2 (10-20) Glucose 133 H (70-99) mg/dl Lactate 0.9 (0.4-2.0) mmol/L Calcium 8.1 L (8.5-10.1) mg/dl Magnesium 2.1 (1.8-2.4) mg/dl Total Bilirubin 0.5 (0.2-1) mg/dl AST 64 H (15-37) U/L ALT 64 (12-78) U/L Alkaline Phosphatase 111 (45-117) U/L Troponin I < 0.015 (0-0.045) ng/ml NT-Pro-B Natriuret Pep 614 (0-1800) pg/ml Total Protein 7.5 (6.4-8.2) gm/dl Albumin 3.1 L (3.4-5.0) gm/dl Globulin 4.4 H (2.5-4.0) gm/dl Albumin/Globulin Ratio 0.7 L (0.9-2) Procalcitonin (0-0.5) ng/ml TSH 1.410 (0.300-4.500) uIu/ml 02/11/20 Range/Units 10:24 WBC 9.54 (4.8-10.8) K/uL RBC 4.43 (4.2-5.4) M/uL Hgb 13.1 (12.0-16.0) g/dL Hct 40.2 (37-47) % MCV 90.7 (80-100) fL MCH 29.6 (25-34) pg MCHC 32.6 (32-36) g/dL RDW Std Deviation 46.3 (36.4-46.3) fL RDW Coeff of Jolene 13.9 (11.5-14.5) % Plt Count 226 (130-400) K/uL MPV 9.8 (7.4-10.4) fL Immature Gran % (Auto) 0.6 % Neut % (Auto) 90.0 % Lymph % (Auto) 4.4 % [place] % (Auto) 4.9 % Eos % (Auto) 0.0 % Baso % (Auto) 0.1 % Neut # (Auto) 8.58 H (1.4-6.5) K/uL Lymph # (Auto) 0.42 L (1.2-3.4) K/uL [place] # (Auto) 0.47 (0.11-0.59) K/uL Eos # (Auto) 0.00 (0-0.5) K/uL Baso # (Auto) 0.01 (0-0.2) K/uL Immature Gran # (Auto) 0.06 H (0.00-0.02) K/uL D-Dimer (0-500) ug/L FEU Sodium (136-145) mmol/L Potassium (3.5-5.1) mmol/L Chloride (98-107) mmol/L Carbon Dioxide (21-32) mmol/L Anion Gap (3-11) BUN (7-18) mg/dl Creatinine (0.6-1.2) mg/dl Est Cr Clr Drug Dosing Est GFR ( Amer) Est GFR (Non-Af Amer) BUN/Creatinine Ratio (10-20) Glucose (70-99) mg/dl Lactate (0.4-2.0) mmol/L Calcium (8.5-10.1) mg/dl Magnesium (1.8-2.4) mg/dl Total Bilirubin (0.2-1) mg/dl AST (15-37) U/L ALT (12-78) U/L Alkaline Phosphatase (45-117) U/L Troponin I (0-0.045) ng/ml NT-Pro-B Natriuret Pep (0-1800) pg/ml Total Protein (6.4-8.2) gm/dl Albumin (3.4-5.0) gm/dl Globulin (2.5-4.0) gm/dl Albumin/Globulin Ratio (0.9-2) Procalcitonin (0-0.5) ng/ml TSH (0.300-4.500) uIu/ml PG Care Time/CCT Total # of Minutes Spent Total Time Spent with Patient: Total time spent is greater than 50% in coordination of care (as documented) at patient's floor/unit and/or counseling patient: Coding Level of Care Code 24745 Subseq Hosp Care Lvl 3 Diagnoses Hypoxia R09.02 Pneumonia J18.9 COVID-19 U07.1 Chronic obstructive pulmonary disease J44.9 Hypokalemia E87.6 Hyponatremia E87.1 Diarrhea R19.7 Hypertension I10 Coronary artery disease I25.10 Hypercholesterolemia E78.00 Hypothyroidism E03.9 Insomnia G47.00 DVT prophylaxis Z29.9
[2020-02-12] MEDS: dexAMETHasone 6 MG in SYRINGE 0 ML IV SCH (22:02)
[2020-02-12] MEDS: MELATONIN 3 MG TAB PO PRN (22:17)
[2020-02-13] MEDS: LEVOTHYROXINE SODIUM 75 MCG TABLET PO SCH (06:02)
[2020-02-13] MEDS: IPRATROPIUM BROMIDE HFA INHALER INH SCH (07:12)
[2020-02-13] MEDS: ALBUTEROL HFA 8 GM INHALER INH SCH (07:12)
[2020-02-13 07:41] LABS: Immature Granulocytes # (auto) 0.04 K/uL (0.00-0.02); Immature Granulocytes % (auto) 0.6 %; Lymphocytes # (auto) 0.28 K/uL (1.2-3.4); Lymphocytes % (auto) 4.1 %; Mean Corpuscular Hemoglobin 29.6 pg (25-34); Mean Corpuscular Hgb Conc 32.5 g/dL (32-36); Mean Corpuscular Volume 91.1 fL (80-100); Mean Platelet Volume 8.9 fL (7.4-10.4); Monocytes # (auto) 0.24 K/uL (0.11-0.59); Monocytes % (auto) 3.5 %; Neutrophils # (auto) 6.24 K/uL (1.4-6.5); Neutrophils % (auto) 91.8 %; Platelet Count 256 K/uL (130-400); RDW Standard Deviation 46.6 fL (36.4-46.3); Red Blood Count 4.39 M/uL (4.2-5.4)
[2020-02-13 07:50] LABS: Alanine Aminotransferase 90 U/L (12-78); Albumin Level 2.5 gm/dl (3.4-5.0); Aspartate Aminotransferase 66 U/L (15-37); Blood Urea Nitrogen 14 mg/dl (7-18); Calcium 8.3 mg/dl (8.5-10.1); Carbon Dioxide 25 mmol/L (21-32); Chloride 102 mmol/L (98-107); Est GFR (African American) 108.9; Est GFR (Non-African American) 93.9; Glucose 140 mg/dl (70-99); Magnesium 2.6 mg/dl (1.8-2.4); Potassium 3.9 mmol/L (3.5-5.1); Sodium 134 mmol/L (136-145)
[2020-02-13 07:55] LABS: Albumin Globulin Ratio 0.6 (0.9-2); Alkaline Phosphatase 97 U/L (45-117); Bilirubin,Total 0.5 mg/dl (0.2-1); C Reactive Protein 8.35 mg/dl (0-0.29); Globulin 4.3 gm/dl (2.5-4.0); Phosphorus 2.9 mg/dl (2.5-4.9); Total Protein 6.8 gm/dl (6.4-8.2)
[2020-02-13] MEDS: FLUTICASONE/VILANTEROL 100/25MCG 14 PUFFS/INHALER INH SCH (08:30)
[2020-02-13] MEDS: UMECLIDINIUM BROMIDE 62.5MCG/BLISTER 7 PUFFS/INHALER INH SCH (08:30)
[2020-02-13] MEDS: dexAMETHasone 6 MG in SYRINGE 0 ML IV SCH ×2 (08:30→20:48)
[2020-02-13] MEDS: ENOXAPARIN INJ 40 MG/0.4 ML SYR SQ SCH (08:31)
[2020-02-13] MEDS: ATORVASTATIN 20 MG TAB PO SCH (08:32)
[2020-02-13] MEDS: dilTIAZem HCL 180 MG CAPCR PO SCH (08:32)
[2020-02-13] MEDS: FAMOTIDINE 10 MG TABLET PO SCH (08:32)
[2020-02-13] MEDS: ASPIRIN 81 MG ECTAB PO SCH (08:32)
[2020-02-13] MEDS ORDERED: predniSONE 20 MG TAB PO SCH (09:00)
[2020-02-13] MEDS ORDERED: IPRATROPIUM BROMIDE HFA INHALER INH PRN (10:14)
[2020-02-13] MEDS ORDERED: ALBUTEROL HFA 8 GM INHALER INH PRN (10:14)
--- NOTE | 2020-02-13 13:21 | Hospitalist Progress Note ---
Date of Service February 13, 2020 Assessment & Plan (1) Hypoxia: Presented with worsening shortness of breath and pulse ox of 84% on room air after being diagnosed with Covid approximately 1 week prior. Has a history of COPD Chest x-ray on admission with mild elevation of the interstitium possibly representing interstitial edema versus infectious/inflammatory process Now improved on 4L NC, saturations 90%, no dyspnea, no distress -Continue supplemental O2 -Continue scheduled albuterol HFA - continue Decadron 6mg IV q12, higher dosing for COPD, working well -Continue fluticasone/Vilanterol (2) Pneumonia: With interstitial pneumonia seen on chest x-ray in the setting of Covid Procalcitonin is negative She already completed a 5-day course of azithromycin as an outpatient This is secondary to Covid viral pneumonia Continue dexamethasone as above, bronchodilators, supplemental O2 Order flutter valve and incentive spirometry no fever, minimal cough, responding well to steroids (3) COVID-19: with hypoxia and interstitial pneumonia, nausea and diarrhea Symptoms started on approximately 02/01 Continue dexamethasone, but she is outside the window for receiving any benefit from remdesivir or convalescent plasma -Continue supportive care as above Daily for GI prophylaxis in the setting of steroid use (4) Chronic obstructive pulmonary disease: With a history of previous smoking Giving steroids, bronchodilators, maintenance inhalers as above (5) Hypokalemia: up to 3.9 today maintain normal levels due to increased muscle use with breathing (6) Hyponatremia: Sodium 129 on admission and now improved to 134 after receiving 2 L of normal saline on admission DC any further IV fluids Continue hydration by mouth Follow BMP in the morning (7) Diarrhea: resolving, no complaints today (8) Hypertension: Blood pressures are somewhat elevated here likely worsened by corticosteroid use -Continue diltiazem 180 mg daily and increase as needed -IV hydralazine as needed for SBP greater than 180 (9) Coronary artery disease: No history listed in the chart No chest pains, ECG on admission without ischemia Continue aspirin, atorvastatin (10) Hypercholesterolemia: Continue statin (11) Hypothyroidism: TSH here normal at 1.4 Continue home levothyroxine (12) Insomnia: Having difficulty sleeping the setting of hospitalization and steroid use Start melatonin 3 mg at bedtime as needed insomnia (13) DVT prophylaxis: Lovenox 40 mg SQ once daily Disposition-continued stay Admission and Anticipated Discharge Date Admission Date: February 11, 2020 Subjective patient says she feels a little better today, less dyspnea on exertion appetite is a lot better every since on Decadron BID she is making urine no fever, minimal cough she is requesting her daughter bring in medications for her macular degeneration Review of Systems Review of Systems: All systems reviewed & are unremarkable except as noted in Subjective Constitutional: + fatigue and + weakness; no fever, no chills and no sweats Respiratory: + dyspnea and + dyspnea on exertion; no cough and no sputum production Cardiovascular: no chest pain and no edema Gastrointestinal: no abdominal pain, no nausea, no vomiting, no constipation and no diarrhea/loose stools Physical Exam Constitutional: WD/WN, vitals as above Neck: trachea midline, no thyromegaly Respiratory: normal respiratory effort, lungs clear to auscultation Cardiovascular: RRR, no murmur, no edema Gastrointestinal (Abdomen): normal bowel sounds, soft, nontender, no hepatosplenomegaly Musculoskeletal: no cyanosis or clubbing, extremities motor strength 5/5 Skin: no rashes, warm and dry Neurologic: patellar DTR's 2+ bilat, sensation intact and PERRL, EOMI, accommodation nl, no face palsy, no dysarthria Psychiatric: A+Ox3, euthymic affect Lymphatic: no cervical or axillary lymphadenopathy Results & Data Results & Data ([facility]) Vital Signs (Past 12 Hours) Vital Signs Temp Pulse Resp BP Pulse Ox 02/13/20 12:06 36.5 C 80 20 161/93 H 90 02/13/20 08:00 36.8 C 75 20 166/82 H 91 02/13/20 07:13 89 19 88 L Laboratory Results Laboratory Results - last 24 hr 02/13/20 02/13/20 02/13/20 06:30 06:30 06:30 WBC 6.80 RBC 4.39 Hgb 13.0 Hct 40.0 MCV 91.1 MCH 29.6 MCHC 32.5 RDW Std Deviation 46.6 H RDW Coeff of Jolene 14.0 Plt Count 256 MPV 8.9 Immature Gran % (Auto) 0.6 Neut % (Auto) 91.8 Lymph % (Auto) 4.1 [place] % (Auto) 3.5 Eos % (Auto) 0.0 Baso % (Auto) 0.0 Neut # (Auto) 6.24 Lymph # (Auto) 0.28 L [place] # (Auto) 0.24 Eos # (Auto) 0.00 Baso # (Auto) 0.00 Immature Gran # (Auto) 0.04 H ESR 57 H Sodium 134 L Potassium 3.9 D Chloride 102 Carbon Dioxide 25 Anion Gap 7.0 BUN 14 Creatinine 0.38 L Est Cr Clr Drug Dosing Not Reportable Est GFR ( Amer) 108.9 Est GFR (Non-Af Amer) 93.9 BUN/Creatinine Ratio 37.0 H Glucose 140 H Calcium 8.3 L Phosphorus 2.9 Magnesium 2.6 H Total Bilirubin 0.5 AST 66 H ALT 90 H Alkaline Phosphatase 97 C-Reactive Protein 8.35 H Total Protein 6.8 Albumin 2.5 L Globulin 4.3 H Albumin/Globulin Ratio 0.6 L Medications Administered Current Inpatient Medications Acetaminophen (Acetaminophen 325 Mg Tab) 650 mg PO Q4H PRN PRN Reason: Pain or Fever Stop: 03/12/20 17:36 Albuterol (Albuterol Hfa 8 Gm Inhaler) 2 puffs INH QIDR PRN PRN Reason: Shortness Of Breath Or Wheezing Stop: 03/12/20 18:59 Aspirin (Aspirin 81 Mg Ectab) 81 mg PO DAILY [facility] Stop: 03/13/20 08:59 Last Admin: 02/13/20 08:32 Dose: 81 mg Documented by: Atorvastatin Calcium (Atorvastatin 20 Mg Tab) 20 mg PO QAM [facility] Stop: 03/13/20 08:59 Last Admin: 02/13/20 08:32 Dose: 20 mg Documented by: Diltiazem HCl (Diltiazem Hcl 180 Mg Capcr) 180 mg PO DAILY [facility] Stop: 03/13/20 08:59 Last Admin: 02/13/20 08:32 Dose: 180 mg Documented by: Enoxaparin Sodium (Enoxaparin Inj 40 Mg/0.4 Ml Syr) 40 mg SQ DAILY [facility] Stop: 03/13/20 08:59 Last Admin: 02/13/20 08:31 Dose: 40 mg Documented by: Famotidine (Famotidine 10 Mg Tablet) 10 mg PO DAILY [facility] Stop: 03/13/20 08:59 Last Admin: 02/13/20 08:32 Dose: 10 mg Documented by: Fluticasone/Vilanterol (Fluticasone/Vilanterol 100/25mcg 14 Puffs/Inhaler) 1 puffs INH DAILY [facility] Stop: 03/13/20 08:59 Last Admin: 02/13/20 08:30 Dose: 1 puffs Documented by: Hydralazine HCl (Hydralazine 10 Mg Tab) 5 mg PO Q4H PRN PRN Reason: .SBP>180 Stop: 03/12/20 17:33 Last Admin: 02/12/20 09:11 Dose: 5 mg Documented by: Dexamethasone 6 mg/ Syringe 1.5 mls @ 1 mls/min IV Q12 [facility] Stop: 03/13/20 20:59 Last Admin: 02/13/20 08:30 Dose: 1 mls/min Documented by: Ipratropium [place] (Ipratropium [place] Hfa Inhaler) 2 puffs INH QIDR PRN PRN Reason: Shortness Of Breath Or Wheezing Stop: 03/12/20 18:59 Levothyroxine Sodium (Levothyroxine Sodium 75 Mcg Tablet) 75 mcg PO DAILYBB [facility] Stop: 03/13/20 06:29 Last Admin: 02/13/20 06:02 Dose: 75 mcg Documented by: Melatonin (Melatonin 3 Mg Tab) 3 mg PO HS PRN PRN Reason: Sleep Stop: 03/13/20 10:50 Last Admin: 02/12/20 22:17 Dose: 3 mg Documented by: Polyethylene Glycol (Polyethylene (Miralax) 17 Gm Pack) 17 gm PO QAM PRN PRN Reason: Constipation Stop: 03/12/20 17:35 Umeclidinium [place] (Umeclidinium [place] 62.5mcg/Blister 7 Puffs/Inhaler) 1 puffs INH DAILY [facility] Stop: 03/13/20 08:59 Last Admin: 02/13/20 08:30 Dose: 1 puffs Documented by: PG Care Time/CCT Total # of Minutes Spent Total Time Spent with Patient: Total time spent is greater than 50% in coordination of care (as documented) at patient's floor/unit and/or counseling patient: Coding Level of Care Code 82981 Subseq Hosp Care Lvl 3 Diagnoses Hypoxia R09.02 Pneumonia J18.9 COVID-19 U07.1 Chronic obstructive pulmonary disease J44.9 Hypokalemia E87.6 Hyponatremia E87.1 Diarrhea R19.7 Hypertension I10 Coronary artery disease I25.10 Hypercholesterolemia E78.00 Hypothyroidism E03.9 Insomnia G47.00 DVT prophylaxis Z29.9
[2020-02-13] MEDS: MELATONIN 3 MG TAB PO PRN (20:48)
[2020-02-14] MEDS: LEVOTHYROXINE SODIUM 75 MCG TABLET PO SCH (05:35)
[2020-02-14] MEDS: FLUTICASONE/VILANTEROL 100/25MCG 14 PUFFS/INHALER INH SCH (08:04)
[2020-02-14] MEDS: dexAMETHasone 6 MG in SYRINGE 0 ML IV SCH ×2 (08:05→23:01)
[2020-02-14] MEDS: dilTIAZem HCL 180 MG CAPCR PO SCH (08:05)
[2020-02-14] MEDS: ASPIRIN 81 MG ECTAB PO SCH (08:05)
[2020-02-14] MEDS: ATORVASTATIN 20 MG TAB PO SCH (08:05)
[2020-02-14] MEDS: UMECLIDINIUM BROMIDE 62.5MCG/BLISTER 7 PUFFS/INHALER INH SCH (08:05)
[2020-02-14] MEDS: FAMOTIDINE 10 MG TABLET PO SCH (08:06)
[2020-02-14] MEDS: ENOXAPARIN INJ 40 MG/0.4 ML SYR SQ SCH (08:06)
[2020-02-14] MEDS ORDERED: predniSONE 20 MG TAB PO SCH (09:00)
[2020-02-14] MEDS: hydrALAZINE 10 MG TAB PO PRN (12:58)
--- NOTE | 2020-02-14 15:57 | Hospitalist Progress Note ---
Date of Service February 14, 2020 Assessment & Plan (1) Hypoxia: Presented with worsening shortness of breath and pulse ox of 84% on room air after being diagnosed with Covid approximately 1 week prior. Has a history of COPD Chest x-ray on admission with mild elevation of the interstitium possibly representing interstitial edema versus infectious/inflammatory process stable on 3-4L at rest, desaturates quickly on exertion, 86% even on 6L NC requiring too much oxygen to go home continue Decadron 6mg IV q12 for a few more days, then send home on daily for a few days albuterol HFA Continue fluticasone/Vilanterol hopeful for discharge in 48 hours (2) Pneumonia: With interstitial pneumonia seen on chest x-ray in the setting of Covid Procalcitonin is negative She already completed a 5-day course of azithromycin as an outpatient This is secondary to Covid viral pneumonia Continue dexamethasone as above, bronchodilators, supplemental O2 Order flutter valve and incentive spirometry no fever, minimal cough, responding well to steroids still on too much oxygen to go home safely (3) COVID-19: with hypoxia and interstitial pneumonia, nausea and diarrhea Symptoms started on approximately 02/01 Continue dexamethasone, but she is outside the window for receiving any benefit from remdesivir or convalescent plasma -Continue supportive care as above PPI for GI prophylaxis in the setting of steroid use no further diarrhea for several days (4) Chronic obstructive pulmonary disease: With a history of previous smoking Giving steroids, bronchodilators, maintenance inhalers as above (5) Hypokalemia: up to 3.9 yesterday maintain normal levels due to increased muscle use with breathing (6) Hyponatremia: Sodium 129 on admission and now improved to 134 after receiving 2 L of normal saline on admission DC any further IV fluids Continue hydration by mouth Follow BMP tomorrow (7) Diarrhea: resolving, no complaints for a few days (8) Hypertension: Blood pressures are somewhat elevated here likely worsened by corticosteroid use -Continue diltiazem 180 mg daily and increase as needed -IV hydralazine as needed for SBP greater than 180 (9) Coronary artery disease: No history listed in the chart No chest pains, ECG on admission without ischemia Continue aspirin, atorvastatin (10) Hypercholesterolemia: Continue statin (11) Hypothyroidism: TSH here normal at 1.4 Continue home levothyroxine (12) Insomnia: Having difficulty sleeping the setting of hospitalization and steroid use Start melatonin 3 mg at bedtime as needed insomnia not working well will try Trazodone 50mg HS this evening (13) DVT prophylaxis: Lovenox 40 mg SQ once daily Disposition-continued stay due to oxygen requirements Admission and Anticipated Discharge Date Admission Date: February 11, 2020 Subjective patient really wanted to leave today, says she cannot stand being here, she will do better at home discussed that she was 90% on 4L at rest, likely too much oxygen requirement to go home safely she really wanted to try asked respiratory to perform a 2 step, she was okay on 3L at rest but on exertion could not get saturations > 86% on 6L also, it took her over 6 minutes to recover her saturations after walking ruled out her being discharged called her daughter to discuss patient is not sleeping well, wants something other than melatonin, will try Trazodone tonight eating okay, no fever, no cough Review of Systems Review of Systems: All systems reviewed & are unremarkable except as noted in Subjective Physical Exam Constitutional: WD/WN, vitals as above Neck: trachea midline, no thyromegaly Respiratory: normal respiratory effort, lungs clear to auscultation Cardiovascular: RRR, no murmur, no edema Gastrointestinal (Abdomen): normal bowel sounds, soft, nontender, no hepatosp lenomegaly Musculoskeletal: no cyanosis or clubbing, extremities motor strength 5/5 Skin: no rashes, warm and dry Neurologic: patellar DTR's 2+ bilat, sensation intact and PERRL, EOMI, accommodation nl, no face palsy, no dysarthria Psychiatric: A+Ox3, euthymic affect Lymphatic: no cervical or axillary lymphadenopathy Results & Data Results & Data ([facility]) Vital Signs (Past 12 Hours) Vital Signs Temp Pulse Pulse Pulse Pulse Pulse Pulse 02/14/20 12:29 83 83 89 89 88 89 02/14/20 11:59 02/14/20 07:59 36.7 C Pulse Pulse Pulse Resp Resp Resp Resp 02/14/20 12:29 79 81 18 18 22 02/14/20 11:59 79 02/14/20 07:59 75 18 Resp Resp Resp Resp Resp BP Pulse Ox 02/14/20 12:29 22 22 22 20 18 02/14/20 11:59 182/82 H 02/14/20 07:59 183/77 H 90 Pulse Ox Pulse Ox Pulse Ox Pulse Ox Pulse Ox Pulse Ox Pulse Ox 02/14/20 12:29 87 L 89 L 83 L 85 L 86 L 79 L 90 02/14/20 11:59 02/14/20 07:59 Pulse Ox 02/14/20 12:29 84 L 02/14/20 11:59 02/14/20 07:59 Laboratory Results Laboratory Results - last 24 hr 02/14/20 02/14/20 07:31 11:34 POC Glucose 160 H 172 H Medications Administered Current Inpatient Medications Acetaminophen (Acetaminophen 325 Mg Tab) 650 mg PO Q4H PRN PRN Reason: Pain or Fever Stop: 03/12/20 17:36 Last Admin: 02/13/20 20:48 Dose: 650 mg Documented by: Albuterol (Albuterol Hfa 8 Gm Inhaler) 2 puffs INH QIDR PRN PRN Reason: Shortness Of Breath Or Wheezing Stop: 03/12/20 18:59 Last Admin: 02/13/20 20:42 Dose: 2 puffs Documented by: Aspirin (Aspirin 81 Mg Ectab) 81 mg PO DAILY [facility] Stop: 03/13/20 08:59 Last Admin: 02/14/20 08:05 Dose: 81 mg Documented by: Atorvastatin Calcium (Atorvastatin 20 Mg Tab) 20 mg PO QAM [facility] Stop: 03/13/20 08:59 Last Admin: 02/14/20 08:05 Dose: 20 mg Documented by: Diltiazem HCl (Diltiazem Hcl 180 Mg Capcr) 180 mg PO DAILY [facility] Stop: 03/13/20 08:59 Last Admin: 02/14/20 08:05 Dose: 180 mg Documented by: Enoxaparin Sodium (Enoxaparin Inj 40 Mg/0.4 Ml Syr) 40 mg SQ DAILY [facility] Stop: 03/13/20 08:59 Last Admin: 02/14/20 08:06 Dose: 40 mg Documented by: Famotidine (Famotidine 10 Mg Tablet) 10 mg PO DAILY [facility] Stop: 03/13/20 08:59 Last Admin: 02/14/20 08:06 Dose: 10 mg Documented by: Fluticasone/Vilanterol (Fluticasone/Vilanterol 100/25mcg 14 Puffs/Inhaler) 1 puffs INH DAILY [facility] Stop: 03/13/20 08:59 Last Admin: 02/14/20 08:04 Dose: 1 puffs Documented by: Hydralazine HCl (Hydralazine 10 Mg Tab) 5 mg PO Q4H PRN PRN Reason: .SBP>180 Stop: 03/12/20 17:33 Last Admin: 02/14/20 12:58 Dose: 5 mg Documented by: Dexamethasone 6 mg/ Syringe 1.5 mls @ 1 mls/min IV Q12 [facility] Stop: 03/13/20 20:59 Last Admin: 02/14/20 08:05 Dose: 1 mls/min Documented by: Ipratropium [place] (Ipratropium [place] Hfa Inhaler) 2 puffs INH QIDR PRN PRN Reason: Shortness Of Breath Or Wheezing Stop: 03/12/20 18:59 Levothyroxine Sodium (Levothyroxine Sodium 75 Mcg Tablet) 75 mcg PO DAILYBB [facility] Stop: 03/13/20 06:29 Last Admin: 02/14/20 05:35 Dose: 75 mcg Documented by: Melatonin (Melatonin 3 Mg Tab) 3 mg PO HS PRN PRN Reason: Sleep Stop: 03/13/20 10:50 Last Admin: 02/13/20 20:48 Dose: 3 mg Documented by: Polyethylene Glycol (Polyethylene (Miralax) 17 Gm Pack) 17 gm PO QAM PRN PRN Reason: Constipation Stop: 03/12/20 17:35 Trazodone HCl (Trazodone Hcl 50 Mg Tab) 50 mg PO HS [facility] Stop: 03/15/20 20:59 Umeclidinium [place] (Umeclidinium [place] 62.5mcg/Blister 7 Puffs/Inhaler) 1 puffs INH DAILY [facility] Stop: 03/13/20 08:59 Last Admin: 02/14/20 08:05 Dose: 1 puffs Documented by: PG Care Time/CCT Total # of Minutes Spent Total Time Spent with Patient: Total time spent is greater than 50% in coordination of care (as documented) at patient's floor/unit and/or counseling patient: Coding Level of Care Code 65841 Subseq Hosp Care Lvl 3 Diagnoses Hypoxia R09.02 Pneumonia J18.9 COVID-19 U07.1 Chronic obstructive pulmonary disease J44.9 Hypokalemia E87.6 Hyponatremia E87.1 Diarrhea R19.7 Hypertension I10 Coronary artery disease I25.10 Hypercholesterolemia E78.00 Hypothyroidism E03.9 Insomnia G47.00 DVT prophylaxis Z29.9
[2020-02-14] MEDS: traZODone HCL 50 MG TAB PO SCH (21:43)
[2020-02-15] MEDS: guaiFENesin/DEXTROM SYRUP 200MG/20MG 10ML UDC PO PRN ×4 (00:27→20:56)
[2020-02-15] MEDS: LEVOTHYROXINE SODIUM 75 MCG TABLET PO SCH (05:20)
[2020-02-15 06:50] LABS: BUN Creatinine Ratio 42.8 (10-20); Blood Urea Nitrogen 25 mg/dl (7-18); Calcium 8.5 mg/dl (8.5-10.1); Carbon Dioxide 27 mmol/L (21-32); Chloride 101 mmol/L (98-107); Est GFR (African American) 94.7; Est GFR (Non-African American) 81.7; Glucose 183 mg/dl (70-99); Potassium 3.8 mmol/L (3.5-5.1); Sodium 134 mmol/L (136-145)
[2020-02-15] MEDS: ASPIRIN 81 MG ECTAB PO SCH (08:10)
[2020-02-15] MEDS: dilTIAZem HCL 180 MG CAPCR PO SCH (08:10)
[2020-02-15] MEDS: UMECLIDINIUM BROMIDE 62.5MCG/BLISTER 7 PUFFS/INHALER INH SCH (08:10)
[2020-02-15] MEDS: FLUTICASONE/VILANTEROL 100/25MCG 14 PUFFS/INHALER INH SCH (08:10)
[2020-02-15] MEDS: dexAMETHasone 6 MG in SYRINGE 0 ML IV SCH ×2 (08:10→20:56)
[2020-02-15] MEDS: FAMOTIDINE 10 MG TABLET PO SCH (08:11)
[2020-02-15] MEDS: ENOXAPARIN INJ 40 MG/0.4 ML SYR SQ SCH (08:11)
[2020-02-15] MEDS: ATORVASTATIN 20 MG TAB PO SCH (08:11)
[2020-02-15] MEDS: traZODone HCL 50 MG TAB PO SCH (20:56)
--- NOTE | 2020-02-15 23:21 | Hospitalist Progress Note ---
Date of Service February 15, 2020 Assessment & Plan (1) Hypoxia: Presented with worsening shortness of breath and pulse ox of 84% on room air after being diagnosed with Covid approximately 1 week prior. Has a history of COPD Chest x-ray on admission with mild elevation of the interstitium possibly representing interstitial edema versus infectious/inflammatory process stable on 5L at rest, desaturates quickly on exertion, 86% even on 6L NC requiring too much oxygen to go home, she is frustrated by this continue Decadron 6mg IV q12 for a few more days, then send home on daily for a few days albuterol HFA Continue fluticasone/Vilanterol hopeful for discharge in 48 hours but now that seems less likely reassess tomorrow (2) Pneumonia: With interstitial pneumonia seen on chest x-ray in the setting of Covid Procalcitonin is negative She already completed a 5-day course of azithromycin as an outpatient This is secondary to Covid viral pneumonia Continue dexamethasone as above, bronchodilators, supplemental O2 Order flutter valve and incentive spirometry no fever, minimal cough, responding well to steroids still on too much oxygen to go home safely (3) COVID-19: with hypoxia and interstitial pneumonia, nausea and diarrhea Symptoms started on approximately 02/01 Continue dexamethasone, but she is outside the window for receiving any benefit from remdesivir or convalescent plasma -Continue supportive care as above PPI for GI prophylaxis in the setting of steroid use no further diarrhea for several days (4) Chronic obstructive pulmonary disease: With a history of previous smoking Giving steroids, bronchodilators, maintenance inhalers as above (5) Hypokalemia: up to 3.8 today maintain normal levels due to increased muscle use with breathing (6) Hyponatremia: Sodium 129 on admission and now improved to 134 after receiving 2 L of normal saline on admission DC any further IV fluids Continue hydration by mouth Follow BMP tomorrow (7) Diarrhea: resolving, no complaints for a few days (8) Hypertension: Blood pressures are somewhat elevated here likely worsened by corticosteroid use -Continue diltiazem 180 mg daily and increase as needed -IV hydralazine as needed for SBP greater than 180 (9) Coronary artery disease: No history listed in the chart No chest pains, ECG on admission without ischemia Continue aspirin, atorvastatin (10) Hypercholesterolemia: Continue statin (11) Hypothyroidism: TSH here normal at 1.4 Continue home levothyroxine (12) Insomnia: Having difficulty sleeping the setting of hospitalization and steroid use Start melatonin 3 mg at bedtime as needed insomnia not working well will try Trazodone 50mg HS - worked better last night, cough syrup worked well also (13) DVT prophylaxis: Lovenox 40 mg SQ once daily Disposition-continued stay due to oxygen requirements Admission and Anticipated Discharge Date Admission Date: February 11, 2020 Subjective patient doesn't seem to understand that she is on too much oxygen to go home explained that she is on 5L at rest, desaturating with simple activity told her I will try to get her home as soon as I can but right now it is not possible no fever, eating well, no diarrhea for days, no nausea/vomiting labs shows stable electrolytes and Cr is 0.58 Review of Systems Review of Systems: All systems reviewed & are unremarkable except as noted in Subjective Physical Exam Constitutional: WD/WN, vitals as above Neck: trachea midline, no thyromegaly Respiratory: normal respiratory effort, lungs clear to auscultation Cardiovascular: RRR, no murmur, no edema Gastrointestinal (Abdomen): normal bowel sounds, soft, nontender, no hepatosplenomegaly Musculoskeletal: no cyanosis or clubbing, extremities motor strength 5/5 Skin: no rashes, warm and dry Neurologic: patellar DTR's 2+ bilat, sensation intact and PERRL, EOMI, accommodation nl, no face palsy, no dysarthria Psychiatric: A+Ox3, euthymic affect Lymphatic: no cervical or axillary lymphadenopathy Results & Data Results & Data ([facility]) Vital Signs (Past 12 Hours) Vital Signs Temp Pulse Resp BP Pulse Ox 02/15/20 15:14 36.4 C L 63 20 170/82 H 96 Laboratory Results Laboratory Results - last 24 hr 02/15/20 05:47 Sodium 134 L Potassium 3.8 Chloride 101 Carbon Dioxide 27 Anion Gap 6.0 BUN 25 H D Creatinine 0.58 L Est Cr Clr Drug Dosing Not Reportable Est GFR ( Amer) 94.7 Est GFR (Non-Af Amer) 81.7 BUN/Creatinine Ratio 42.8 H Glucose 183 H Calcium 8.5 Medications Administered Current Inpatient Medications Acetaminophen (Acetaminophen 325 Mg Tab) 650 mg PO Q4H PRN PRN Reason: Pain or Fever Stop: 03/12/20 17:36 Last Admin: 02/13/20 20:48 Dose: 650 mg Documented by: Albuterol (Albuterol Hfa 8 Gm Inhaler) 2 puffs INH QIDR PRN PRN Reason: Shortness Of Breath Or Wheezing Stop: 03/12/20 18:59 Last Admin: 02/13/20 20:42 Dose: 2 puffs Documented by: Aspirin (Aspirin 81 Mg Ectab) 81 mg PO DAILY [facility] Stop: 03/13/20 08:59 Last Admin: 02/15/20 08:10 Dose: 81 mg Documented by: Atorvastatin Calcium (Atorvastatin 20 Mg Tab) 20 mg PO QAM [facility] Stop: 03/13/20 08:59 Last Admin: 02/15/20 08:11 Dose: 20 mg Documented by: Diltiazem HCl (Diltiazem Hcl 180 Mg Capcr) 180 mg PO DAILY [facility] Stop: 03/13/20 08:59 Last Admin: 02/15/20 08:10 Dose: Not Given Documented by: Enoxaparin Sodium (Enoxaparin Inj 40 Mg/0.4 Ml Syr) 40 mg SQ DAILY [facility] Stop: 03/13/20 08:59 Last Admin: 02/15/20 08:11 Dose: 40 mg Documented by: Famotidine (Famotidine 10 Mg Tablet) 10 mg PO DAILY [facility] Stop: 03/13/20 08:59 Last Admin: 02/15/20 08:11 Dose: 10 mg Documented by: Fluticasone/Vilanterol (Fluticasone/Vilanterol 100/25mcg 14 Puffs/Inhaler) 1 puffs INH DAILY [facility] Stop: 03/13/20 08:59 Last Admin: 02/15/20 08:10 Dose: 1 puffs Documented by: Guaifenesin/Dextromethorphan (Guaifenesin/Dextrom Syrup 200mg/20mg 10ml Udc) 10 ml PO Q6H PRN PRN Reason: Cough Stop: 03/16/20 00:03 Last Admin: 02/15/20 20:56 Dose: 10 ml Documented by: Hydralazine HCl (Hydralazine 10 Mg Tab) 5 mg PO Q4H PRN PRN Reason: .SBP>180 Stop: 03/12/20 17:33 Last Admin: 02/14/20 12:58 Dose: 5 mg Documented by: Dexamethasone 6 mg/ Syringe 1.5 mls @ 1 mls/min IV Q12 [facility] Stop: 03/13/20 20:59 Last Admin: 02/15/20 20:56 Dose: 1 mls/min Documented by: Ipratropium [place] (Ipratropium [place] Hfa Inhaler) 2 puffs INH QIDR PRN PRN Reason: Shortness Of Breath Or Wheezing Stop: 03/12/20 18:59 Levothyroxine Sodium (Levothyroxine Sodium 75 Mcg Tablet) 75 mcg PO DAILYBB [facility] Stop: 03/13/20 06:29 Last Admin: 02/15/20 05:20 Dose: 75 mcg Documented by: Melatonin (Melatonin 3 Mg Tab) 3 mg PO HS PRN PRN Reason: Sleep Stop: 03/13/20 10:50 Last Admin: 02/13/20 20:48 Dose: 3 mg Documented by: Polyethylene Glycol (Polyethylene (Miralax) 17 Gm Pack) 17 gm PO QAM PRN PRN Reason: Constipation Stop: 03/12/20 17:35 Potassium Chloride (Potassium Chloride Crtab 20 Meq Tabcr) 20 meq PO QAM [facility] Stop: 03/17/20 08:59 Trazodone HCl (Trazodone Hcl 50 Mg Tab) 50 mg PO HS [facility] Stop: 03/15/20 20:59 Last Admin: 02/15/20 20:56 Dose: 50 mg Documented by: Umeclidinium [place] (Umeclidinium [place] 62.5mcg/Blister 7 Puffs/Inhaler) 1 puffs INH DAILY [facility] Stop: 03/13/20 08:59 Last Admin: 02/15/20 08:10 Dose: 1 puffs Documented by: PG Care Time/CCT Total # of Minutes Spent Total Time Spent with Patient: Total time spent is greater than 50% in coordination of care (as documented) at patient's floor/unit and/or counseling patient: Coding Level of Care Code 10210 Subseq Hosp Care Lvl 2 Diagnoses Hypoxia R09.02 Pneumonia J18.9 COVID-19 U07.1 Chronic obstructive pulmonary disease J44.9 Hypokalemia E87.6 Hyponatremia E87.1 Diarrhea R19.7 Hypertension I10 Coronary artery disease I25.10 Hypercholesterolemia E78.00 Hypothyroidism E03.9 Insomnia G47.00 DVT prophylaxis Z29.9
[2020-02-16] MEDS: BENZONATATE 100 MG CAPSULE PO SCH ×4 (00:52→20:29)
[2020-02-16] MEDS: LEVOTHYROXINE SODIUM 75 MCG TABLET PO SCH (05:08)
[2020-02-16] MEDS: FLUTICASONE/VILANTEROL 100/25MCG 14 PUFFS/INHALER INH SCH (08:29)
[2020-02-16] MEDS: ASPIRIN 81 MG ECTAB PO SCH (08:30)
[2020-02-16] MEDS: dilTIAZem HCL 180 MG CAPCR PO SCH (08:30)
[2020-02-16] MEDS: UMECLIDINIUM BROMIDE 62.5MCG/BLISTER 7 PUFFS/INHALER INH SCH (08:30)
[2020-02-16] MEDS: dexAMETHasone 6 MG in SYRINGE 0 ML IV SCH ×2 (08:30→20:30)
[2020-02-16] MEDS: POTASSIUM CHLORIDE CRTAB 20 MEQ TABCR PO SCH (08:31)
[2020-02-16] MEDS: ENOXAPARIN INJ 40 MG/0.4 ML SYR SQ SCH (08:31)
[2020-02-16] MEDS: ATORVASTATIN 20 MG TAB PO SCH (08:31)
[2020-02-16] MEDS: FAMOTIDINE 10 MG TABLET PO SCH (08:31)
--- NOTE | 2020-02-16 13:03 | Hospitalist Progress Note ---
Date of Service February 16, 2020 Assessment & Plan (1) Hypoxia: Presented with worsening shortness of breath and pulse ox of 84% on room air after being diagnosed with Covid approximately 1 week prior. Has a history of COPD Chest x-ray on admission with mild elevation of the interstitium possibly representing interstitial edema versus infectious/inflammatory process continues to be stable on 5L at rest, desaturates quickly on exertion, 86% even on 6L NC with 2 step on 02/13 requiring too much oxygen to go home, she is frustrated by this continue Decadron 6mg IV q12 until tomorrow, then taper to once daily albuterol HFA Continue fluticasone/Vilanterol won't be able to go home until her oxygen requirements are down to 2L (2) Pneumonia: With interstitial pneumonia seen on chest x-ray in the setting of Covid Procalcitonin is negative She already completed a 5-day course of azithromycin as an outpatient This is secondary to Covid viral pneumonia Continue dexamethasone as above, bronchodilators, supplemental O2 Order flutter valve and incentive spirometry no fever, minimal cough, responding well to steroids still on too much oxygen to go home safely (3) COVID-19: with hypoxia and interstitial pneumonia, nausea and diarrhea Symptoms started on approximately 02/01 Continue dexamethasone, but she is outside the window for receiving any benefit from remdesivir or convalescent plasma -Continue supportive care as above PPI for GI prophylaxis in the setting of steroid use no further diarrhea for several days (4) Chronic obstructive pulmonary disease: With a history of previous smoking Giving steroids, bronchodilators, maintenance inhalers as above (5) Hypokalemia: up to 3.8 yesterday maintain normal levels due to increased muscle use with breathing check BMP in the AM (6) Hyponatremia: Sodium 129 on admission and now improved to 134 after receiving 2 L of normal saline on admission DC any further IV fluids Continue hydration by mouth Follow BMP tomorrow (7) Diarrhea: resolved, no complaints for a few days solid BM today (8) Hypertension: Blood pressures are somewhat elevated here likely worsened by corticosteroid use -Continue diltiazem 180 mg daily and increase as needed -IV hydralazine as needed for SBP greater than 180 (9) Coronary artery disease: No history listed in the chart No chest pains, ECG on admission without ischemia Continue aspirin, atorvastatin (10) Hypercholesterolemia: Continue statin (11) Hypothyroidism: TSH here normal at 1.4 Continue home levothyroxine (12) Insomnia: Having difficulty sleeping the setting of hospitalization and steroid use Start melatonin 3 mg at bedtime as needed insomnia not working well will try Trazodone 50mg HS - working well (13) DVT prophylaxis: Lovenox 40 mg SQ once daily Disposition-continued stay due to oxygen requirements Admission and Anticipated Discharge Date Admission Date: February 11, 2020 Subjective patient is about the same as yesterday, still on 5L, no distress at rest has dyspnea on minimal exertion she says she is eating much better, still no diarrhea discussed again that she needs to be on less oxygen to go home, she is frustrated by this no labs today Review of Systems Review of Systems: All systems reviewed & are unremarkable except as noted in Subjective Respiratory: + cough, + dyspnea and + dyspnea on exertion Physical Exam Constitutional: WD/WN, vitals as above Neck: trachea midline, no thyromegaly Respiratory: normal respiratory effort, lungs clear to auscultation Cardiovascular: RRR, no murmur, no edema Gastrointestinal (Abdomen): normal bowel sounds, soft, nontender, no hepatosplenomegaly Musculoskeletal: no cyanosis or clubbing, extremities motor strength 5/5 Skin: no rashes, warm and dry Neurologic: patellar DTR's 2+ bilat, sensation intact and PERRL, EOMI, accommodation nl, no face palsy, no dysarthria Psychiatric: A+Ox3, euthymic affect Lymphatic: no cervical or axillary lymphadenopathy Results & Data Results & Data ([facility]) Vital Signs (Past 12 Hours) Vital Signs Temp Pulse Resp BP Pulse Ox 02/16/20 07:17 36.3 C L 65 20 175/74 H 95 02/16/20 02:00 94 Medications Administered Current Inpatient Medications Acetaminophen (Acetaminophen 325 Mg Tab) 650 mg PO Q4H PRN PRN Reason: Pain or Fever Stop: 03/12/20 17:36 Last Admin: 02/13/20 20:48 Dose: 650 mg Documented by: Albuterol (Albuterol Hfa 8 Gm Inhaler) 2 puffs INH QIDR PRN PRN Reason: Shortness Of Breath Or Wheezing Stop: 03/12/20 18:59 Last Admin: 02/13/20 20:42 Dose: 2 puffs Documented by: Aspirin (Aspirin 81 Mg Ectab) 81 mg PO DAILY [facility] Stop: 03/13/20 08:59 Last Admin: 02/16/20 08:30 Dose: 81 mg Documented by: Atorvastatin Calcium (Atorvastatin 20 Mg Tab) 20 mg PO QAM [facility] Stop: 03/13/20 08:59 Last Admin: 02/16/20 08:31 Dose: 20 mg Documented by: Benzonatate (Benzonatate 100 Mg Capsule) 100 mg PO TID [facility] Stop: 03/17/20 08:59 Last Admin: 02/16/20 20:29 Dose: 100 mg Documented by: Diltiazem HCl (Diltiazem Hcl 180 Mg Capcr) 180 mg PO DAILY [facility] Stop: 03/13/20 08:59 Last Admin: 02/16/20 08:30 Dose: 180 mg Documented by: Enoxaparin Sodium (Enoxaparin Inj 40 Mg/0.4 Ml Syr) 40 mg SQ DAILY [facility] Stop: 03/13/20 08:59 Last Admin: 02/16/20 08:31 Dose: 40 mg Documented by: Famotidine (Famotidine 10 Mg Tablet) 10 mg PO DAILY [facility] Stop: 03/13/20 08:59 Last Admin: 02/16/20 08:31 Dose: 10 mg Documented by: Fluticasone/Vilanterol (Fluticasone/Vilanterol 100/25mcg 14 Puffs/Inhaler) 1 puffs INH DAILY [facility] Stop: 03/13/20 08:59 Last Admin: 02/16/20 08:29 Dose: 1 puffs Documented by: Guaifenesin/Dextromethorphan (Guaifenesin/Dextrom Syrup 200mg/20mg 10ml Udc) 10 ml PO Q6H PRN PRN Reason: Cough Stop: 03/16/20 00:03 Last Admin: 02/15/20 20:56 Dose: 10 ml Documented by: Hydralazine HCl (Hydralazine 10 Mg Tab) 5 mg PO Q4H PRN PRN Reason: .SBP>180 Stop: 03/12/20 17:33 Last Admin: 02/14/20 12:58 Dose: 5 mg Documented by: Dexamethasone 6 mg/ Syringe 1.5 mls @ 1 mls/min IV Q12 [facility] Stop: 03/13/20 20:59 Last Admin: 02/16/20 20:30 Dose: 1 mls/min Documented by: Ipratropium [place] (Ipratropium [place] Hfa Inhaler) 2 puffs INH QIDR PRN PRN Reason: Shortness Of Breath Or Wheezing Stop: 03/12/20 18:59 Levothyroxine Sodium (Levothyroxine Sodium 75 Mcg Tablet) 75 mcg PO DAILYBB [facility] Stop: 03/13/20 06:29 Last Admin: 02/16/20 05:08 Dose: 75 mcg Documented by: Melatonin (Melatonin 3 Mg Tab) 3 mg PO HS PRN PRN Reason: Sleep Stop: 03/13/20 10:50 Last Admin: 02/13/20 20:48 Dose: 3 mg Documented by: Polyethylene Glycol (Polyethylene (Miralax) 17 Gm Pack) 17 gm PO QAM PRN PRN Reason: Constipation Stop: 03/12/20 17:35 Potassium Chloride (Potassium Chloride Crtab 20 Meq Tabcr) 20 meq PO QAM [facility] Stop: 03/17/20 08:59 Last Admin: 02/16/20 08:31 Dose: 20 meq Documented by: Trazodone HCl (Trazodone Hcl 50 Mg Tab) 50 mg PO HS [facility] Stop: 03/15/20 20:59 Last Admin: 02/16/20 20:29 Dose: 50 mg Documented by: Umeclidinium [place] (Umeclidinium [place] 62.5mcg/Blister 7 Puffs/Inhaler) 1 puffs INH DAILY [facility] Stop: 03/13/20 08:59 Last Admin: 02/16/20 08:30 Dose: 1 puffs Documented by: PG Care Time/CCT Total # of Minutes Spent Total Time Spent with Patient: Total time spent is greater than 50% in coordination of care (as documented) at patient's floor/unit and/or counseling patient: Coding Level of Care Code 70922 Subseq Hosp Care Lvl 2 Diagnoses Hypoxia R09.02 Pneumonia J18.9 COVID-19 U07.1 Chronic obstructive pulmonary disease J44.9 Hypokalemia E87.6 Hyponatremia E87.1 Diarrhea R19.7 Hypertension I10 Coronary artery disease I25.10 Hypercholesterolemia E78.00 Hypothyroidism E03.9 Insomnia G47.00 DVT prophylaxis Z29.9
[2020-02-16] MEDS: traZODone HCL 50 MG TAB PO SCH (20:29)
[2020-02-17] MEDS: guaiFENesin/DEXTROM SYRUP 200MG/20MG 10ML UDC PO PRN (00:40)
[2020-02-17] MEDS: LEVOTHYROXINE SODIUM 75 MCG TABLET PO SCH (06:09)
[2020-02-17] MEDS: FLUTICASONE/VILANTEROL 100/25MCG 14 PUFFS/INHALER INH SCH (08:55)
[2020-02-17] MEDS: dilTIAZem HCL 180 MG CAPCR PO SCH (08:55)
[2020-02-17] MEDS: ASPIRIN 81 MG ECTAB PO SCH (08:56)
[2020-02-17] MEDS: dexAMETHasone 6 MG in SYRINGE 0 ML IV SCH ×2 (08:56→20:39)
[2020-02-17] MEDS: UMECLIDINIUM BROMIDE 62.5MCG/BLISTER 7 PUFFS/INHALER INH SCH (08:56)
[2020-02-17] MEDS: POTASSIUM CHLORIDE CRTAB 20 MEQ TABCR PO SCH (08:56)
[2020-02-17] MEDS: ENOXAPARIN INJ 40 MG/0.4 ML SYR SQ SCH (08:57)
[2020-02-17] MEDS: ATORVASTATIN 20 MG TAB PO SCH (08:57)
[2020-02-17] MEDS: BENZONATATE 100 MG CAPSULE PO SCH ×3 (08:58→20:38)
[2020-02-17] MEDS: FAMOTIDINE 10 MG TABLET PO SCH (08:58)
--- NOTE | 2020-02-17 16:29 | Hospitalist Progress Note ---
Date of Service February 17, 2020 Assessment & Plan (1) Hypoxia: Presented with worsening shortness of breath and pulse ox of 84% on room air after being diagnosed with Covid approximately 1 week prior. Has a history of COPD Chest x-ray on admission with mild elevation of the interstitium possibly representing interstitial edema versus infectious/inflammatory process improved to 3L at rest, dyspnea on exertion requiring too much oxygen to go home, she is frustrated by this taper Decadron to 6mg IV daily albuterol HFA Continue fluticasone/Vilanterol won't be able to go home until her oxygen requirements are down to 2L (2) Pneumonia: With interstitial pneumonia seen on chest x-ray in the setting of Covid Procalcitonin is negative She already completed a 5-day course of azithromycin as an outpatient This is secondary to Covid viral pneumonia Continue dexamethasone daily as above, bronchodilators, supplemental O2 Order flutter valve and incentive spirometry no fever, minimal cough, responding well to steroids still on too much oxygen to go home safely but improved to 3L (3) COVID-19: with hypoxia and interstitial pneumonia, nausea and diarrhea Symptoms started on approximately 02/01 Continue dexamethasone, but she is outside the window for receiving any benefit from remdesivir or convalescent plasma -Continue supportive care as above PPI for GI prophylaxis in the setting of steroid use no further diarrhea for several days, now constipated, use Miralax (4) Chronic obstructive pulmonary disease: With a history of previous smoking Giving steroids, bronchodilators, maintenance inhalers as above (5) Hypokalemia: resolved (6) Hyponatremia: Sodium 129 on admission and now improved to 134 after receiving 2 L of normal saline on admission DC any further IV fluids Continue hydration by mouth Follow BMP tomorrow (7) Diarrhea: resolved, no complaints for a few days solid BM today (8) Hypertension: Blood pressures are somewhat elevated here likely worsened by co rticosteroid use -Continue diltiazem 180 mg daily and increase as needed remains elevated, start Hydralazine 25mg TID (9) Coronary artery disease: No history listed in the chart No chest pains, ECG on admission without ischemia Continue aspirin, atorvastatin (10) Hypercholesterolemia: Continue statin (11) Hypothyroidism: TSH here normal at 1.4 Continue home levothyroxine (12) Insomnia: Having difficulty sleeping the setting of hospitalization and steroid use Start melatonin 3 mg at bedtime as needed insomnia not working well will try Trazodone 50mg HS - working well (13) DVT prophylaxis: Lovenox 40 mg SQ once daily Disposition-continued stay due to oxygen requirements Admission and Anticipated Discharge Date Admission Date: February 11, 2020 Subjective patient down to 3L today, breathing easier, she is very happy still with dyspnea when walking to the bathroom but better eating really well, no fever requested some Miralax to help her move her bowels, it has been a few days BP remains elevated, will start treatment Review of Systems Review of Systems: All systems reviewed & are unremarkable except as noted in Subjective Physical Exam Constitutional: WD/WN, vitals as above Neck: trachea midline, no thyromegaly Respiratory: normal respiratory effort, lungs clear to auscultation Cardiovascular: RRR, no murmur, no edema Gastrointestinal (Abdomen): normal bowel sounds, soft, nontender, no hepatosplenomegaly Musculoskeletal: no cyanosis or clubbing, extremities motor strength 5/5 Skin: no rashes, warm and dry Neurologic: patellar DTR's 2+ bilat, sensation intact and PERRL, EOMI, accommodation nl, no face palsy, no dysarthria Psychiatric: A+Ox3, euthymic affect Lymphatic: no cervical or axillary lymphadenopathy Results & Data Results & Data ([facility]) Vital Signs (Past 12 Hours) Vital Signs Temp Pulse Resp BP BP Pulse Ox 02/17/20 10:54 36.6 C 67 16 173/65 H 91 02/17/20 09:06 36.5 C 61 19 180/77 H Medications Administered Current Inpatient Medications Acetaminophen (Acetaminophen 325 Mg Tab) 650 mg PO Q4H PRN PRN Reason: Pain or Fever Stop: 03/12/20 17:36 Last Admin: 02/13/20 20:48 Dose: 650 mg Documented by: Albuterol (Albuterol Hfa 8 Gm Inhaler) 2 puffs INH QIDR PRN PRN Reason: Shortness Of Breath Or Wheezing Stop: 03/12/20 18:59 Last Admin: 02/13/20 20:42 Dose: 2 puffs Documented by: Aspirin (Aspirin 81 Mg Ectab) 81 mg PO DAILY NANCIE Stop: 03/13/20 08:59 Last Admin: 02/17/20 08:56 Dose: 81 mg Documented by: Atorvastatin Calcium (Atorvastatin 20 Mg Tab) 20 mg PO QAM [facility] Stop: 03/13/20 08:59 Last Admin: 02/17/20 08:57 Dose: 20 mg Documented by: Benzonatate (Benzonatate 100 Mg Capsule) 100 mg PO TID [facility] Stop: 03/17/20 08:59 Last Admin: 02/17/20 14:15 Dose: 100 mg Documented by: Diltiazem HCl (Diltiazem Hcl 180 Mg Capcr) 180 mg PO DAILY [facility] Stop: 03/13/20 08:59 Last Admin: 02/17/20 08:55 Dose: 180 mg Documented by: Enoxaparin Sodium (Enoxaparin Inj 40 Mg/0.4 Ml Syr) 40 mg SQ DAILY [facility] Stop: 03/13/20 08:59 Last Admin: 02/17/20 08:57 Dose: 40 mg Documented by: Famotidine (Famotidine 10 Mg Tablet) 10 mg PO DAILY [facility] Stop: 03/13/20 08:59 Last Admin: 02/17/20 08:58 Dose: 10 mg Documented by: Fluticasone/Vilanterol (Fluticasone/Vilanterol 100/25mcg 14 Puffs/Inhaler) 1 puffs INH DAILY [facility] Stop: 03/13/20 08:59 Last Admin: 02/17/20 08:55 Dose: 1 puffs Documented by: Guaifenesin/Dextromethorphan (Guaifenesin/Dextrom Syrup 200mg/20mg 10ml Udc) 10 ml PO Q6H PRN PRN Reason: Cough Stop: 03/16/20 00:03 Last Admin: 02/17/20 00:40 Dose: 10 ml Documented by: Hydralazine HCl (Hydralazine 10 Mg Tab) 5 mg PO Q4H PRN PRN Reason: .SBP>180 Stop: 03/12/20 17:33 Last Admin: 02/14/20 12:58 Dose: 5 mg Documented by: Dexamethasone 6 mg/ Syringe 1.5 mls @ 1 mls/min IV Q12 [facility] Stop: 03/13/20 20:59 Last Admin: 02/17/20 08:56 Dose: 1 mls/min Documented by: Ipratropium [place] (Ipratropium [place] Hfa Inhaler) 2 puffs INH QIDR PRN PRN Reason: Shortness Of Breath Or Wheezing Stop: 03/12/20 18:59 Levothyroxine Sodium (Levothyroxine Sodium 75 Mcg Tablet) 75 mcg PO DAILYBB [facility] Stop: 03/13/20 06:29 Last Admin: 02/17/20 06:09 Dose: 75 mcg Documented by: Melatonin (Melatonin 3 Mg Tab) 3 mg PO HS PRN PRN Reason: Sleep Stop: 03/13/20 10:50 Last Admin: 02/13/20 20:48 Dose: 3 mg Documented by: Polyethylene Glycol (Polyethylene (Miralax) 17 Gm Pack) 17 gm PO QAM PRN PRN Reason: Constipation Stop: 03/12/20 17:35 Last Admin: 02/17/20 10:58 Dose: 17 gm Documented by: Potassium Chloride (Potassium Chloride Crtab 20 Meq Tabcr) 20 meq PO QAM [facility] Stop: 03/17/20 08:59 Last Admin: 02/17/20 08:56 Dose: 20 meq Documented by: Trazodone HCl (Trazodone Hcl 50 Mg Tab) 50 mg PO HS [facility] Stop: 03/15/20 20:59 Last Admin: 02/16/20 20:29 Dose: 50 mg Documented by: Umeclidinium [place] (Umeclidinium [place] 62.5mcg/Blister 7 Puffs/Inhaler) 1 puffs INH DAILY [facility] Stop: 03/13/20 08:59 Last Admin: 02/17/20 08:56 Dose: 1 puffs Documented by: PG Care Time/CCT Total # of Minutes Spent Total Time Spent with Patient: Total time spent is greater than 50% in coordination of care (as documented) at patient's floor/unit and/or counseling patient: Coding Level of Care Code 34017 Subseq Hosp Care Lvl 2 Diagnoses Hypoxia R09.02 Pneumonia J18.9 COVID-19 U07.1 Chronic obstructive pulmonary disease J44.9 Hypokalemia E87.6 Hyponatremia E87.1 Diarrhea R19.7 Hypertension I10 Coronary artery disease I25.10 Hypercholesterolemia E78.00 Hypothyroidism E03.9 Insomnia G47.00 DVT prophylaxis Z29.9
[2020-02-17] MEDS: MELATONIN 3 MG TAB PO PRN (20:37)
[2020-02-17] MEDS: traZODone HCL 50 MG TAB PO SCH (20:38)
[2020-02-17] MEDS: hydrALAZINE HCL 25 MG TAB PO SCH (21:42)
[2020-02-18] MEDS: LEVOTHYROXINE SODIUM 75 MCG TABLET PO SCH (05:47)
[2020-02-18 07:55] LABS: Hematocrit (blood only) 40.1 % (37-47); Mean Corpuscular Hemoglobin 29.7 pg (25-34); Mean Corpuscular Hgb Conc 32.4 g/dL (32-36); Mean Corpuscular Volume 91.6 fL (80-100); Mean Platelet Volume 9.4 fL (7.4-10.4); Platelet Count 406 K/uL (130-400); RDW Coefficient of Variation 13.8 % (11.5-14.5); RDW Standard Deviation 46.5 fL (36.4-46.3); Red Blood Count 4.38 M/uL (4.2-5.4); White Blood Count 10.36 K/uL (4.8-10.8)
[2020-02-18 08:34] LABS: BUN Creatinine Ratio 43.6 (10-20); Calcium 8.6 mg/dl (8.5-10.1); Creatinine Clr Calc Pharmacy 65.7 ml/min; Est GFR (African American) 95.3; Est GFR (Non-African American) 82.2; Potassium 4.8 mmol/L (3.5-5.1)
[2020-02-18] MEDS: hydrALAZINE HCL 25 MG TAB PO SCH ×2 (09:40→14:35)
[2020-02-18] MEDS: dilTIAZem HCL 180 MG CAPCR PO SCH (09:43)
[2020-02-18] MEDS: dexAMETHasone 6 MG in SYRINGE 0 ML IV SCH (09:44)
[2020-02-18] MEDS: ASPIRIN 81 MG ECTAB PO SCH (09:44)
[2020-02-18] MEDS: POTASSIUM CHLORIDE CRTAB 20 MEQ TABCR PO SCH (09:45)
[2020-02-18] MEDS: ATORVASTATIN 20 MG TAB PO SCH (09:45)
[2020-02-18] MEDS: ENOXAPARIN INJ 40 MG/0.4 ML SYR SQ SCH (09:45)
[2020-02-18] MEDS: BENZONATATE 100 MG CAPSULE PO SCH ×2 (09:46→14:35)
[2020-02-18] MEDS: FAMOTIDINE 10 MG TABLET PO SCH (09:46)
[2020-02-18] MEDS: FLUTICASONE/VILANTEROL 100/25MCG 14 PUFFS/INHALER INH SCH (10:41)
[2020-02-18] MEDS: UMECLIDINIUM BROMIDE 62.5MCG/BLISTER 7 PUFFS/INHALER INH SCH (10:42)
--- NOTE | 2020-02-18 13:08 | Discharge Summary ---
Date of Service February 18, 2020 Admission HPI Per Admitting Provider see scanned H&P as this was performed during [facility] down time Principal Diagnosis COVID 19 infection, acute hypoxic respiratory failure Discharge Exam Constitutional WD/WN, vitals as above Neck trachea midline, no thyromegaly Respiratory normal respiratory effort, lungs clear to auscultation Cardiovascular RRR, no murmur, no edema Gastrointestinal (Abdomen) normal bowel sounds, soft, nontender, no hepatosplenomegaly Musculoskeletal no cyanosis or clubbing, extremities motor strength 5/5 Skin no rashes, warm and dry Neurologic patellar DTR's 2+ bilat, sensation intact and PERRL, EOMI, accommodation nl, no face palsy, no dysarthria Psychiatric A+Ox3, euthymic affect Lymphatic no cervical or axillary lymphadenopathy Discharge Data Allergies Allergy/AdvReac Type Severity Reaction Status Date / Time atorvastatin AdvReac Unknown MYALGIA Verified 04/28/19 09:29 Hospital Course (1) Hypoxia: Presented with worsening shortness of breath and pulse ox of 84% on room air after being diagnosed with Covid approximately 1 week prior. Has a history of COPD Chest x-ray on admission with mild elevation of the interstitium possibly repr esenting interstitial edema versus infectious/inflammatory process improved to 2L at rest, minimal dyspnea on exertion two step on day of discharge showed she needs 2L at rest and 4L on exertion treated with Decadron 6mg IV BID for several days due to COPD diagnosis, tapered to 6mg IV daily will continue Decadron 6mg PO daily x 5 more days since she is still on oxygen albuterol HFA Continue fluticasone/Vilanterol at home eating and drinking well, continue to get rest and recover (2) Pneumonia: With interstitial pneumonia seen on chest x-ray in the setting of Covid Procalcitonin is negative She already completed a 5-day course of azithromycin as an outpatient This is secondary to Covid viral pneumonia treated with dexamethasone, change to PO on discharge, 6mg PO daily x 5 more days used flutter valve and incentive spirometry no fever, minimal cough, responding well to steroids can go home as she is down to 2L at rest and 4L on exertion (3) COVID-19: with hypoxia and interstitial pneumonia, nausea and diarrhea Symptoms started on approximately 02/01 treated with dexamethasone, but she was outside the window for receiving any benefit from remdesivir or convalescent plasma -Continue supportive care as above PPI for GI prophylaxis in the setting of steroid use no further diarrhea for several days, now constipated as above, send home on Dexamethasone for 5 days (4) Chronic obstructive pulmonary disease: With a history of previous smoking Giving steroids, bronchodilators, maintenance inhalers as above no wheezing on exam (5) Hypokalemia: resolved (6) Hyponatremia: Sodium 129 on admission and now improved to 134 after receiving 2 L of normal saline on admission DC any further IV fluids Continue hydration by mouth Follow BMP periodically as outpatient but Na is stable (7) Diarrhea: resolved, no complaints for a few days solid 02/15 (8) Hypertension: Blood pressures are somewhat elevated here likely worsened by corticosteroid use -Continue diltiazem 180 mg daily and increase as needed remains elevated, start Hydralazine 25mg TID and continue short term as outpatient follow up with PCP for BP check to determine if she still needs to be on the Hydralazine (9) Coronary artery disease: No history listed in the chart No chest pains, ECG on admission without ischemia Continue aspirin, atorvastatin (10) Hypercholesterolemia: Continue statin (11) Hypothyroidism: TSH here normal at 1.4 Continue home levothyroxine (12) Insomnia: Having difficulty sleeping the setting of hospitalization and steroid use Start melatonin 3 mg at bedtime as needed insomnia not working well will try Trazodone 50mg HS - working well while admitted (13) DVT prophylaxis: Lovenox 40 mg SQ once daily Total Time Total Time Spent Total Time Spent (In Minutes): 32 minutes Total Time Includes: Examination of the Patient, Discharge Planning and Medication Reconciliation Discharge Plan Discharge Items Patient Disposition: Home - Self-Care Reason For Visit: COVID POSITIVE, HYPOXIA, COPD EXACERBATION Discharge Diagnosis: COVID 19 pneumonia Acute hypoxia COPD exacerbation Condition on Discharge: Good Goals: stay well nourished, stay well hydrated get rest but also stay active complete prescribed medications Activity: Resume your previous activity Non-emergency contact: Primary Care Provider Call non-emergency contact if: you have any medication questions, your symptoms worsen and you have a fever Follow-up/Referrals: Francheska Zapata MD [Primary Care Provider] - (one week) Diet: Regular Addtl Attending Provider Instructions: Medications: - DEXAMETHASONE: 6mg daily for 5 more days, start tomorrow - HYDRALAZINE: 25mg three times a day, this is for blood pressure - ROBITUSSIN: take every 6 hours as needed for cough symptoms COVID 19 pneumonia, acute hypoxia, COPD exacerbation treated with decadron, breathing treatments slowly improved over the past week, titrated oxygen down to 2L at rest will discharge home on 2L at rest and 4L on exertion continue to get rest, eat well, stay well hydrated ambulate in your house frequently to keep strength up, use your walker w henever you walk need to stay isolated 10 days from positive test Hypertension: blood pressure running high at times added Hydralazine 25mg three times a day, continue this at home follow up with PCP for blood pressure check in 1-2 weeks Pending Studies at Discharge: No Stand-Alone Forms: My [employer], Smoking Cessation Medications and DC Order Prescriptions: New hydralazine 25 mg Tablet 25 mg PO TID 30 Days Qty: 90 RF: 3 Robitussin Cough-Chest Brain DM 5-100 mg/5 mL Liquid 10 ml PO Q6H PRN (Reason: cough) 7 Days Qty: 237 RF: 0 dexamethasone 2 mg tablet 6 mg PO DAILY 5 Days Qty: 15 RF: 0 Continued albuterol sulfate 90 mcg/actuation HFA aerosol inhaler 2 puffs inhalation Q4H PRN (Reason: shortness of breath or wheezing) Qty: 18 RF: 1 fluticasone propion-salmeterol [Wixela Inhub] 250-50 mcg/dose blister with device 1 inh inhalation BID Qty: 180 RF: 1 levothyroxine 75 mcg tablet 75 mcg PO QAM Qty: 60 RF: 1 (DME) [facility] [place] See Dose Instructions .ROUTE .MEDSUPPLY Qty: 1 RF: 0 aspirin 81 mg Tablet,Delayed Release (Dr/Ec) 81 mg PO QAM RF: 0 atorvastatin 20 mg tablet 20 mg PO QAM RF: 0 diltiazem HCl [Cartia XT] 180 mg capsule,extended release 24hr 180 mg PO QAM RF: 0 Spiriva with HandiHaler 18 mcg capsule, w/inhalation device 1 cap inhalation QAM RF: 0 Discharge Orders: Discharge Order (Routine); Ordered 02/18/20 Ordered By: Conrad Nielsen Admission Data Admit Date/Time: 02/11/20 11:40 Attending Provider: Conrad Nielsen Admit Provider: Riley Mckeon Primary Care Provider: Francheska Zapata Other Interventions: Discharge Summary Assessment (RN) Last Done: 02/18/20 14:38 Coding Level of Care Code D/C Day Management >30 mins Diagnoses Hypoxia R09.02 Pneumonia J18.9 COVID-19 U07.1 Chronic obstructive pulmonary disease J44.9 Hypokalemia E87.6 Hyponatremia E87.1 Diarrhea R19.7 Hypertension I10 Coronary artery disease I25.10 Hypercholesterolemia E78.00 Hypothyroidism E03.9 Insomnia G47.00 DVT prophylaxis Z29.9
== END 2020-02-18 15:34 | disposition home or self-care (01) | DRG 177 ==
LOC: ED 08:48 → SUATTDRO 11:40 → 2W 11:40 → 3E 02-17 18:11